=== PATIENT | male | born 1975 | race Caucasian/White ===

== ENCOUNTER → 2017-10-02 | Outpatient (CLI) | payer OTHER ==
[~2017-10-02] MED LIST: FLX10 PO; TRAM-10 PO
[2017-10-02 13:14] LABS: BLOOD UREA NITROGEN 12 mg/dl (7-18); CARBON DIOXIDE 28 mmol/L (21-32); CHOLESTEROL 151 mg/dl (0-200); CREATININE 1.08 mg/dl (0.60-1.40); GLUCOSE 106 mg/dl (70-99); POTASSIUM 4.5 mmol/L (3.5-5.1); SODIUM 138 mmol/L (136-145)
[2017-10-02 13:17] LABS: LDL CHOLESTEROL CALCULATED 88 mg/dl
== END | disposition home or self-care (01) ==
LOC: C.LABPVFM 09:15
PROVIDERS: ATTEND Nurse Practitioner Family
DX: Z13.1 Encounter for screening for diabetes mellitus (principal)

== ENCOUNTER → 2017-11-24 | Outpatient (CLI) | payer OTHER ==
[~2017-11-24] MED LIST changes: -TRAM-10 PO
--- NOTE | 2017-11-24 09:22 | DIAGNOSTIC IMAGING REPORT ---
MRI OF THE LUMBAR SPINE WITHOUT CONTRAST CLINICAL HISTORY: Lumbar radiculopathy. Low back pain radiating into right lower extremity. COMPARISON STUDY: No previous studies for comparison. TECHNIQUE: Utilizing a 1.5 Pretty magnet and dedicated coil, multiplanar, multiecho imaging of the lumbar spine was performed without IV contrast. FINDINGS: For purposes of numbering on this exam, the L5-S1 disc space is assigned to axial image 24 of 27. Vertebral body heights are maintained. There is no marrow edema or marrow replacement. A few Schmorl's nodes are noted. Conus terminates at the L1-L2 level. Paravertebral soft tissues are unremarkable. There is moderate disc space narrowing at L5-S1 with disc desiccation. L1-2: There is a small left first central disc protrusion that results in mild narrowing of the left lateral recess. The neural foramen are patent. L2-3: The central canal and neural foramen are patent. L3-4: There is mild disc bulge with ligamentous hypertrophy and facet arthrosis. The central canal and neural foramen are patent L4-5: There is mild facet arthrosis and ligamentous hypertrophy. Central canal and neural foramen are patent. L5-S1: There is disc bulge with superimposed broad-based central/bilateral paracentral disc protrusion. This results in moderate narrowing of the central canal and lateral recesses. There is suspected mass effect upon the descending right S1 nerve root. There is mild narrowing of both neural foramen. IMPRESSION: 1. Disc bulge with superimposed broad-based central/bilateral paracentral disc protrusion at L5-S1 that results in moderate narrowing of the central canal and both lateral recesses with suspected mass effect upon the right S1 nerve root. This could be correlated with right S1 radiculopathy. Mild bilateral neural foraminal narrowing at this level. 2. Small left paracentral disc protrusion at L1-L2 that results in mild narrowing of the left lateral recess. Electronically signed by: Chris Ford M.D. 11/24/2017 9:20 AM Dictated Date/Time: 11/24/2017 9:14 AM
== END | disposition home or self-care (01) ==
LOC: C.MRI 07:48
PROVIDERS: ATTEND Physician Assistant Medical
DX: M51.17 Intervertebral disc disorders with radiculopathy, lumbosacral region (principal)

== ENCOUNTER 2022-09-21 12:21 | Inpatient (IN) ==
--- NOTE | 2022-09-21 13:03 | Emergency Department Note ---
Impression & Plan Sciatica, Intractable low back pain ED Provider Note NAME: MARQUISE ROSA AGE: 47 SEX: M : 1975 ARRIVES VIA: Ambulance INFORMANT: Patient, ED PROVIDER(S): Cornell Ruiz MD CHIEF COMPLAINT: MEDICAL DECISION MAKING: Patient did present due to concern for back pain. Blood work was obtained and the patient was treated symptomatically with an IV that was established with IV morphine and IV Toradol IV fluids and p.o. Tylenol. Patient did have a lumbar x-ray completed. The patient's blood work is grossly unremarkable. The patient did not have significant relief with the initial round of medications. The patient was ordered 1 of Dilaudid. Patient's plain films do show some degenerative change. Patient has no weakness or bowel or bladder incontinence or symptoms of cauda equina. The patient was attempted to be seated up and ambulated but could not do so and do not believe the patient may go home at this time. I did speak with the on-call hospitalist Dr. Mcgarry for intractable back pain. Patient was a dmitted to the medicine service. Patient was ordered additional dose of fentanyl and COVID swab. Blood work showed a normal white count H&H and platelet count kidney function was grossly unremarkable. COVID-negative. Prior /Outside records reviewed: None Differential diagnosis: Musculoskeletal, disc herniation, fracture, metastatic disease, cord compression, discitis, sciatica, cauda equina, infection, aortic disease, renal colic, gastrointestinal, as well as other pathologies. Diagnostics, as interpreted by me: ECG: None Cardiac monitoring: An order was placed for continuous cardiac monitoring. The monitor shows a rate of 82 with sinus rhythm. Patient was placed on pulse oximetry Medical decision rules: None Imaging studies: See below HPI: Patient presents due to concern for back pain that began on Friday. The patient does have a known history of a bulging disc at L5-S1 and has had shooting pains in the past on the left side. The patient denies any inciting event or injury overuse heavy lifting twisting or turning but did have pain that developed on Friday he does have shooting pain down the right leg. The patient denies any numbness tingling or focal weakness and no bowel or bladder incontinence or retention. No falls or trauma. Patient did contact his pain management physician was prescribed prednisone but states that this has not been improving his symptoms. The patient has not taken anything else for symptoms at home. Patient states that he had such discomfort this morning that he was unable to get up and about to where he did call EMS. Patient denies any chest pain shortness of breath nausea or vomiting. Patient denies any alcohol or tob acco use. PAST MEDICAL HISTORY: See Below PAST SURGICAL HISTORY: See Below SOCIAL HISTORY: See Below HOME MEDICATIONS: See Below ALLERGIES: See Below VITALS: See Below PHYSICAL EXAMINATION: GENERAL: NAD, wearing a mask, non-toxic. EYE EXAM: Normal conjunctiva. PERRL, no anisocoria and EOM's grossly intact w/o pain. NECK: Supple, no nuchal rigidity, no adenopathy, non-tender. No signs of meningismus. FROM of the neck with good chin to chest and neck extension. No stridor. LUNGS: Clear to auscultation. Normal chest wall mechanics. HEART: NSR, no MRG. ABDOMEN: Abdomen soft, non-tender, normo-active bowel sounds, no masses, no rebound or guarding. BACK: No CVA TTP. No midline or right-sided paraspinal discomfort. SKIN: No rashes and no bruising. UPPER EXTREMITIES: Upper extremities are grossly normal. LOWER EXTREMITIES: Grossly normal, no edema. Positive straight leg raise test with right lower extremity. NEURO EXAM: A&O x3, cranial nerves II-XII grossly intact, normal speech, moves all 4 extremities. No sensory deficits, no saddle anesthesia, 5 out of 5 strength left lower extremity, 5 out of 5 strength right lower extremity but decreased range of motion secondary to pain. 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 Required: No Beliefs That Will Affect Care: None marital status: Current Living Situation: Spouse and Family current occupational status: employed 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 Other Information That Helps Us Care for You: No Feels Safe at Home: Yes Safety Concerns: Feels Safe At This Time caffeine: Yes (coffee) Dental Care, Regularly: Yes Physical Activity Frequency: 1-2 Times per Week Seatbelt Use: always Sunscreen Use: Yes Allergies Allergies Allergy/AdvReac Type Severity Reaction Status Date / Time Penicillins Allergy Mild Rash Verified 09/21/22 16:56 Home Meds Home Medications Medication Instructions Recorded Confirmed ibuprofen 200 mg tablet (Advil) 600 mg PO Q6H PRN Pain 09/21/22 09/21/22 multivitamin 1 tab PO DAILY 09/21/22 09/21/22 Previous Rx's Medication Instructions Recorded methylprednisolone 4 mg tablets in 4 mg PO .COMPLEX #21 ea 09/16/22 a dose pack Results & Data (ED) Vital Signs Vital Signs - 24 hr 09/21/22 12:09 09/21/22 16:00 Temperature 36.8 C Temperature Source Oral Pulse Rate 78 Pulse Rate [Apical] 56 L Pulse Rhythm Regular Pulse Rhythm [Apical] Regular Pulse Strength Normal Pulse Strength [Apical] Normal Respiratory Rate 20 20 Respiratory Effort / Characteristics Non-Labored Non-Labored Respiratory Depth Normal Normal Respiratory Pattern Regular Regular Blood Pressure 158/81 H Blood Pressure [Right Arm] 144/93 H Blood Pressure Mean 106 Blood Pressure Mean [Right Arm] 110 Pulse Oximetry 96 96 Oxygen Delivery Method Room Air Sepsis Recent Fever Within 48 Hours No Sepsis New/Unexplained Change in Mental Status No Sepsis Action Taken by Nursing No Action Required Home Medications Current Medication List: was personally reviewed by me Laboratory Data Attestation: I reviewed the patient's lab results. 09/22/22 07:02 09/22/22 07:02 Lab Results 09/21/22 09/21/22 09/21/22 Range/Units 13:35 13:35 16:23 WBC 7.30 (4.8-10.8) K/ul RBC 5.10 (4.70-6.10) M/uL Hgb 15.1 (14.0-18.0) g/dl Hct 44.6 (42.0-52.0) % MCV 87.5 (80.0-100.0) fL MCH 29.6 (25.0-34.0) pg MCHC 33.9 (32.0-36.0) g/dL RDW Std Deviation 43.3 (36.4-46.3) fL RDW Coeff of Bri 13.4 (11.5-14.5) % Plt Count 245 (130-400) K/uL MPV 10.7 (9.4-12.4) fL Immature Gran % (Auto) 0.4 % Neut % (Auto) 65.0 % Lymph % (Auto) 23.8 % [place] % (Auto) 9.3 % Eos % (Auto) 0.8 % Baso % (Auto) 0.7 % Neut # (Auto) 4.74 (1.40-6.50) K/uL Lymph # (Auto) 1.74 (1.2-3.4) K/uL [place] # (Auto) 0.68 H (0.11-0.59) K/uL Eos # (Auto) 0.06 (0-0.50) K/uL Baso # (Auto) 0.05 (0-0.2) K/uL Immature Gran # (Auto) 0.03 (0.01-0.20) K/uL Sodium 139 (136-145) mmol/L Potassium 4.0 (3.5-5.1) mmol/L Chloride 107 (98-107) mmol/L Carbon Dioxide 27 (21-32) mmol/L Anion Gap 5 (3-11) BUN 18 (6-23) mg/dl Creatinine 1.06 (0.6-1.4) mg/dl Est Cr Clr Drug Dosing 131.9 ml/min Est GFR ( Amer) 97.1 ml/min Est GFR (Non-Af Amer) 83.8 ml/min BUN/Creatinine Ratio 17.0 (10-20) Glucose 99 (70-99(Fasting)) mg/dl Calcium 9.9 (8.5-10.1) mg/dl SARS-CoV-2, RNA, NAAT NEGATIVE (NEGATIVE) Administered Medications Acetaminophen (Acetaminophen 325 Mg Tab) 650 mg PO Q4H PRN PRN Reason: pain/fever Stop: 10/21/22 18:39 Last Admin: 09/22/22 07:29 Dose: 650 mg Documented By: FREEDOM Cyclobenzaprine HCl (Cyclobenzaprine Hcl 5 Mg Tab) 5 mg PO BID [facility] Stop: 10/21/22 20:59 Last Admin: 09/22/22 07:30 Dose: 5 mg Documented By: Admin: 09/21/22 20:29 Dose: 5 mg Documented By: AGUSTÍN Hydromorphone HCl (Hydromorphone Inj 1 Mg/Ml Syringe) 1 mg IV Q3H PRN PRN Reason: Severe Pain (7,8,9,10) on NRS Stop: 10/05/22 18:39 Last Admin: 09/21/22 19:06 Dose: 1 mg Documented By: FREEDOM Dexamethasone 6 mg/ Syringe 1.5 mls @ 1 mls/min IV Q24H ORIANA Stop: 10/21/22 18:59 Last Admin: 09/21/22 20:29 Dose: 1 mls/min Documented By: AGUSTÍN Lidocaine (Lidocaine 5% 1 Patch) 1 patch TD QAM [facility] Stop: 10/22/22 08:59 Last Admin: 09/22/22 07:30 Dose: Not Given Documented By: FREEDOM Amaral (Remove Lidoderm Patch) 1 each N/A DAILY@2100 [facility] Stop: 10/21/22 20:59 Last Admin: 09/21/22 20:30 Dose: 1 each Documented By: AGUSTÍN Amaral (Remove Lidoderm Patch) 1 each N/A DAILY@2100 [facility] Stop: 10/21/22 20:59 Last Admin: 09/21/22 20:30 Dose: Not Given Documented By: AGUSTÍN Pantoprazole Sodium (Pantoprazole 40 Mg Tab) 40 mg PO DAILY [facility] Stop: 10/21/22 18:59 Last Admin: 09/22/22 07:30 Dose: 40 mg Documented By: Admin: 09/21/22 20:28 Dose: 40 mg Documented By: AGUSTÍN Discontinued Medications Acetaminophen (Acetaminophen 500 Mg Tab) 1,000 mg PO NOW STA Stop: 09/21/22 13:45 Last Admin: 09/21/22 14:01 Dose: 1,000 mg Documented By: CHYNA Fentanyl Citrate (Fentanyl Citrate 100 Mcg/2 Ml Vial) 50 mcg IV NOW STA Stop: 09/21/22 16:23 Last Admin: 09/21/22 16:33 Dose: 50 mcg Documented By: JAMES Hydromorphone HCl (Hydromorphone Inj 1 Mg/Ml Syringe) 1 mg IV NOW STA Stop: 09/21/22 15:11 Last Admin: 09/21/22 15:21 Dose: 1 mg Documented By: JAMES Ketorolac Tromethamine (Ketorolac Tromethamine 15 Mg/Ml Vial) 10 mg IV ONE STA Stop: 09/21/22 13:45 Last Admin: 09/21/22 14:02 Dose: 10 mg Documented By: CHYNA Lidocaine (Lidocaine 5% 1 Patch) 1 patch TD NOW STA Stop: 09/21/22 13:45 Last Admin: 09/21/22 14:02 Dose: 1 patch Documented By: CHYNA Morphine Sulfate (Morphine Sulfate 4 Mg/Ml 1 Ml Carp\Vial) 4 mg IV NOW STA Stop: 09/21/22 13:45 Last Admin: 09/21/22 14:03 Dose: 4 mg Documented By: CHYNA Imaging Data Radiologist's Impression: Lumbar Spine X-Ray 09/21/22 13:44 XR lumbar spine 2-3V HISTORY: 47 years-old Male R sided sciatica chronic low back pain COMPARISON: MR lumbar spine 01/30/2022 TECHNIQUE: 3 views of the lumbar spine FINDINGS: Unremarkable soft tissues. 5 lumbar type vertebral segments are present. Mild multilevel spondylitic spurring with intervertebral disc space narrowing and facet arthrosis. No acute fracture, subluxation or endplate erosion. No spondylolysis or spondylolisthesis. IMPRESSION: 1. No acute fracture or subluxation. 2. Mild degenerative changes of the lumbar spine are better depicted on the 01/30/2022 MRI study. ACT 112: Negative or not required by law. The above report was generated using voice recognition software. It may contain grammatical, syntax or spelling errors. Electronically signed by: Mitchell Jordan M.D. 09/21/2022 2:34 PM Discharge Plan Visit Data Chief Complaint: Back Injury/Pain Stated Complaint: BACK PAIN ED Provider: Cornell Ruiz Discharge Problem: Sciatica, Intractable low back pain Patient Disposition: Admitted As Inpatient Discharge Instructions Interventions: ED Discharge Assessment Last Done: 09/21/22 19:04
[2022-09-21] MEDS ORDERED: KETOROLAC TROMETHAMINE 15 MG/ML VIAL IV STA (13:44)
[2022-09-21] MEDS ORDERED: LIDOCAINE 5% 1 PATCH TD STA (13:44)
[2022-09-21] MEDS ORDERED: MoRPHine SULFATE 4 MG/ML 1 ML CARP\\VIAL IV STA (13:44)
[2022-09-21] MEDS ORDERED: ACETAMINOPHEN 500 MG TAB PO STA (13:44)
--- NOTE | 2022-09-21 14:36 | XRay Report ---
XR lumbar spine 2-3V HISTORY: 47 years-old Male R sided sciatica chronic low back pain COMPARISON: MR lumbar spine 01/30/2022 TECHNIQUE: 3 views of the lumbar spine FINDINGS: Unremarkable soft tissues. 5 lumbar type vertebral segments are present. Mild multilevel spondylitic spurring with intervertebral disc space narrowing and facet arthrosis. No acute fracture, subluxation or endplate erosion. No spondylolysis or spondylolisthesis. IMPRESSION: 1. No acute fracture or subluxation. 2. Mild degenerative changes of the lumbar spine are better depicted on the 01/30/2022 MRI study. ACT 112: Negative or not required by law. The above report was generated using voice recognition software. It may contain grammatical, syntax o r spelling errors. Electronically signed by: Mitchell Jordan M.D. 09/21/2022 2:34 PM
[2022-09-21] MEDS ORDERED: HYDROmorphone INJ 1 MG/ML SYRINGE IV STA (15:10)
[2022-09-21 16:04] LABS: Basophils # (auto) 0.05 K/uL (0-0.2); Basophils % (auto) 0.7 %; Eosinophils # (auto) 0.06 K/uL (0-0.50); Eosinophils % (auto) 0.8 %; Hematocrit (blood only) 44.6 % (42.0-52.0); Hemoglobin 15.1 g/dl (14.0-18.0); Immature Granulocytes # (auto) 0.03 K/uL (0.01-0.20); Immature Granulocytes % (auto) 0.4 %; Lymphocytes # (auto) 1.74 K/uL (1.2-3.4); Lymphocytes % (auto) 23.8 %; Mean Corpuscular Hemoglobin 29.6 pg (25.0-34.0); Mean Corpuscular Hgb Conc 33.9 g/dL (32.0-36.0); Mean Corpuscular Volume 87.5 fL (80.0-100.0); Mean Platelet Volume 10.7 fL (9.4-12.4); Monocytes # (auto) 0.68 K/uL (0.11-0.59); Monocytes % (auto) 9.3 %; Neutrophils # (auto) 4.74 K/uL (1.40-6.50); Platelet Count 245 K/uL (130-400); RDW Coefficient of Variation 13.4 % (11.5-14.5); RDW Standard Deviation 43.3 fL (36.4-46.3)
[2022-09-21] MEDS ORDERED: fentaNYL citrate 100 MCG/2 ML VIAL IV STA (16:22)
[2022-09-21 16:24] LABS: Calcium 9.9 mg/dl (8.5-10.1); Creatinine Clr Calc Pharmacy 131.9 ml/min; Est GFR (African American) 97.1 ml/min; Est GFR (Non-African American) 83.8 ml/min
--- NOTE | 2022-09-21 17:04 | History & Physical Report ---
Date of Service September 21, 2022 Assessment & Plan (1) Back pain: Plan: Acute on chronic low back pain. Less than 7 days, progressive without neurovascular compromise Patient with recurrent low back pain and right leg radicular symptoms Had similar but more mild symptoms from until August, received an injection with pain management which did significantly improve/resolve his pain for a few weeks Did not have any injury, but notes this past Friday did have recurrence of his right low back pain extending into the leg which has gradually worsened through the week. Patient came in today when he was no longer able to get up off the floor due to severe pain No sensory deficits, no weakness, no saddle anesthesia, no bowel/bladder dysfunction Patient did not improve with outpatient methylprednisolone 4 mg Dosepak over the last 5 days Some relief in ER after Tylenol, fentanyl 50 mcg, hydromorphone 1 mg, Toradol, lidocaine patch, morphine 4 mg Will admit for intractable pain and inability to ambulate. Continue multimodal pain control with Tylenol, lidocaine patch, will switch and trial dexamethasone 6 mg twice daily, with scaled hydromorphone for breakthrough If pain not improving with aggressive control above, obtain repeat MRI, consult pain management reeval for? Additional injection versus orthospine consultation if remains intractable. No weakness/sensory deficit indicating need for emergent decompression. MRI 01/20/2022: Multilevel degenerative disc disease and facet arthrosis, moderate canal stenosis at L5-S1 progressive since prior imaging in 2017 Lumbar spine XR: No fracture or subluxation, mild degenerative changes Patient denies other chronic medical problems and chronic medications none Diet: Regular Disposition: Medical/surgical CODE STATUS: Full code DVT PPx: SCDs, hold pharmacal prophylaxis pending pain management eval for? Injection (2) Lumbar pain with radiation down right leg: History of Present Illness Primary Care Provider: Yolanda Schaefer MD Back pain since Friday Severe, radiaing down R leg down into R lateral ankle No weakness no bowel or bladder change Gradually worsened Took methylpred 5 day taper which did not help Fentany, hydromorphine, toradol, lidocaine, morhpine, tylenol with some pain relief at rest but cannot walk due to pain Pt with lumbar injection Aug 22 did help, pain improved until this past friday. Original similar pain stared an dsignificantly improved after injection. No click/pop/twist injury at onset Medical History: Reviewed Medications: Reviewed Surgical History: Reviewed Allergies: Reviewed Social History: No tobacco, Etoh none Code Status: Emergency contact is Niya. Full Code Allergies Allergy/AdvReac Type Severity Reaction Status Date / Time Penicillins Allergy Mild Rash Verified 09/21/22 16:56 Home Medications Medication Instructions Recorded Confirmed Type methylprednisolone 4 mg tablets in 4 mg PO .COMPLEX #21 ea 09/16/22 09/21/22 Rx a dose pack ibuprofen 200 mg tablet (Advil) 600 mg PO Q6H PRN Pain 09/21/22 09/21/22 History multivitamin 1 tab PO DAILY 09/21/22 09/21/22 History Past Med/Surg History Medical History Lumbar disc herniation Lumbar pain with radiation down right leg Spinal stenosis of lumbar region Surgical History No pertinent past surgical history Family History Grandmother Diabetes Denies family history of Ovarian cancer Prostate cancer Breast cancer Colorectal cancer Lung disease Hypertension Social History Smoking Status: Never smoker Second Hand Exposure: No; Hx Alcohol Use: Yes Hx Substance Use: No Preferred Language: Gibraltarian marital status: Current Living Situation: Spouse current occupational status: employed 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 NAD. Cooperative. HEENT: Atraumatic, normocephalic. Pulm: CTAB A&P. -wheezes, -rales, -rhonchi. Symmetrical chest rise. No increased work of breathing. No respiratory distress. Cardiac: RRR, -mrg. Radial pulses intact and symmetrical. Abdominal: Nontender, nondistended, soft. BS present. Back/extremity: Patient resting laying back in bed with knees flexed, reports this does help his pain. Is able to extend his right leg at the knee to about 20 degrees before shooting pain develops shooting down through the buttock into the lateral ankle. With lumbar tenderness and mild increased paraspinal tone. Sensation intact to soft touch in all distributions of the proximal and lower right and left lower extremity without asymmetry. Ankle dorsiflexion/plantarflexion is 5/5 bilaterally. Knee flexion/extension is 5/5 bilaterally, limit of extension on the right side by pain, but no weakness. No saddle anesthesia. Results & Data Results & Data ([facility]) Vital Signs (Past 12 Hours) Vital Signs Temp Pulse Pulse Resp BP BP Pulse Ox 09/21/22 16:00 56 L 20 144/93 H 96 09/21/22 12:09 36.8 C 78 20 158/81 H 96 O2 Del Method 09/21/22 16:00 09/21/22 12:09 Room Air PG Care Time/CCT Total # of Minutes Spent Total Time Spent with Patient: Total time spent is greater than 50% in coordination of care (as documented) at patient's floor/unit and/or counseling patient: Coding Level of Care Code 90358 INT INP/OBS CARE 2/55MIN Diagnoses Back pain M54.9 Lumbar pain with radiation down right leg M54.50; M79.604
[2022-09-21] MEDS ORDERED: HYDROmorphone INJ 0.5 MG/0.5 ML SYR IV PRN (18:40)
[2022-09-21] MEDS ORDERED: POLYETHYLENE (MIRALAX) 17 GM PACK PO PRN (18:40)
[2022-09-21] MEDS: HYDROmorphone INJ 1 MG/ML SYRINGE IV PRN (19:06)
[2022-09-21] MEDS: PANTOprazole 40 MG TAB PO SCH (20:28)
[2022-09-21] MEDS: CYCLOBENZAPRINE HCL 5 MG TAB PO SCH (20:29)
[2022-09-21] MEDS: dexAMETHasone 6 MG in SYRINGE 0 ML IV SCH (20:29)
[2022-09-22 07:21] LABS: Basophils # (auto) 0.02 K/uL (0-0.2); Basophils % (auto) 0.3 %; Hematocrit (blood only) 45.3 % (42.0-52.0); Hemoglobin 15.1 g/dl (14.0-18.0); Immature Granulocytes # (auto) 0.03 K/uL (0.01-0.20); Immature Granulocytes % (auto) 0.4 %; Lymphocytes # (auto) 0.81 K/uL (1.2-3.4); Mean Corpuscular Hemoglobin 29.4 pg (25.0-34.0); Mean Corpuscular Hgb Conc 33.3 g/dL (32.0-36.0); Mean Corpuscular Volume 88.1 fL (80.0-100.0); Mean Platelet Volume 10.5 fL (9.4-12.4); Monocytes # (auto) 0.32 K/uL (0.11-0.59); Monocytes % (auto) 4.3 %; Neutrophils # (auto) 6.21 K/uL (1.40-6.50); Platelet Count 248 K/uL (130-400); RDW Coefficient of Variation 13.2 % (11.5-14.5); Red Blood Count 5.14 M/uL (4.70-6.10); White Blood Count 7.39 K/ul (4.8-10.8)
[2022-09-22] MEDS: ACETAMINOPHEN 325 MG TAB PO PRN ×3 (07:29→19:47)
[2022-09-22] MEDS: PANTOprazole 40 MG TAB PO SCH (07:30)
[2022-09-22] MEDS: CYCLOBENZAPRINE HCL 5 MG TAB PO SCH ×2 (07:30→19:44)
[2022-09-22] MEDS: LIDOCAINE 5% 1 PATCH TD SCH (07:30)
[2022-09-22 07:49] LABS: BUN Creatinine Ratio 21.2 (10-20); Calcium 9.7 mg/dl (8.5-10.1); Est GFR (African American) 89.8 ml/min; Est GFR (Non-African American) 77.5 ml/min; Potassium 4.4 mmol/L (3.5-5.1)
[2022-09-22] MEDS: HYDROmorphone INJ 1 MG/ML SYRINGE IV PRN (10:07)
--- NOTE | 2022-09-22 11:14 | Hospitalist Progress Note ---
Date of Service September 22, 2022 Assessment & Plan (1) Back pain: Plan: Acute on chronic low back pain. Less than 7 days, progressive without neurovascular compromise Patient with recurrent low back pain and right leg radicular symptoms Patient did not improve with outpatient methylprednisolone 4 mg Dosepak over the last 5 days Some relief in ER after Tylenol, fentanyl 50 mcg, hydromorphone 1 mg, Toradol, lidocaine patch, morphine 4 mg Will admit for intractable pain and inability to ambulate. Continue multimodal pain control with Tylenol, lidocaine patch, will switch and trial dexamethasone 6 mg twice daily, with scaled hydromorphone for breakthrough MRI 01/20/2022: Multilevel degenerative disc disease and facet arthrosis, moderate canal stenosis at L5-S1 progressive since prior imaging in 2018 - Lumbar spine XR: No fracture or subluxation, mild degenerative changes - MRI of lumbar spine w/o contrast ordered this AM - pending read by radiology, will determine either to consult orthospine v pain management - Upon my review of MRI appears to have a disc bulge between L5 and S1 (2) Lumbar pain with radiation down right leg: Plan Continue pain control, PT/OT, and await radiologist read on MRI which will dictate remainder of plan. Above has been d/w Dr. Pierre. Admission and Anticipated Discharge Date Admission Date: September 21, 2022 Subjective Patient seen on daily rounds this morning. He denies pain with laying still in bed, but pain is exacerbated by movement, changing positions, twisting. He c/o sharp pain in lower back that radiates down right leg into ankle. No precipitating events prior to onset of pain. He denies loss of bowel or bladder or saddle anesthesias. He had an exacerbation of back pain in May which by the time he was able to get into pain management had seemed to improve somewhat. He noted some relief after his epidural spine injection in August. Physical Exam Physical Exam: GENERAL: 47 yo Well-developed, overweight WM. NAD. EXTREMITIES: No edema. Non-tender. Peripheral pulses +2/4. +straight leg rise on R, -cross straight leg NEUROLOGIC: No gross neuro deficits. mild RLE weakness > LLE Results & Data Results & Data ([facility]) Vital Signs (Past 12 Hours) Vital Signs Temp Pulse Resp BP Pulse Ox O2 Del Method 09/22/22 07:40 36.5 C 61 18 118/78 95 Room Air Laboratory Results 09/22/22 07:02 09/22/22 07:02 PG Care Time/CCT Total # of Minutes Spent Total Time Spent with Patient: Total time spent is greater than 50% in coordination of care (as documented) at patient's floor/unit and/or counseling patient: Coding Level of Care Code 78673 SUB INP/OBS CARE 2/35MIN Diagnoses Back pain M54.9 Lumbar pain with radiation down right leg M54.50; M79.604
--- NOTE | 2022-09-22 15:04 | Magnetic Resonance Report ---
MRI OF THE LUMBAR SPINE WITHOUT IV CONTRAST CLINICAL HISTORY: Chronic low back pain. COMPARISON STUDY: Lumbar spine radiographs dated 09/21/2022. MRI of the lumbar spine dated 01/30/2022. TECHNIQUE: MRI of the lumbar spine is performed utilizing various T1 and T2-weighted sequences in the axial and sagittal planes. IV contrast was not administered for this examination. FINDINGS: Lumbar spine: Vertebral body height and alignment are maintained throughout the lumbar spine. Normal marrow signal intensity is preserved throughout the visualized bony structures. The transverse and sp inous processes appear intact. There is no evidence of spondylolysis. Small anterior and lateral marcos inal osteophytes are seen throughout. No destructive bony lesion is seen. Intervertebral discs: Disc desiccation is seen throughout the lumbar region. There is mild to moderat e loss of height at L5-S1. Minimal loss of height is seen at L1-L2 and L2-L3. Spinal cord: The visualized spinal cord is normal in morphology and signal intensity. The conus medul joanna terminates at the L1-L2 interspace. The nerve roots of the cauda equina are normal in morpholog y and signal intensity. L1-L2: Minimal posterior disc bulge abuts the transiting nerve roots. The central canal and neural fo ramina are patent. L2-L3: Unremarkable. L3-L4: There is a small central posterior disc protrusion. This abuts the transiting nerve roots. The re is no significant acquired compromise of the central canal at this level. The minimum AP diameter measures 7.5 mm. The neural foramina are patent. L4-L5: Unremarkable. L5-S1: There is broad-based posterior disc bulge eccentric to the left with annular fissure. A small inferiorly extruded fragment is seen eccentric to the left on axial image #29. This measures up to 7 mm. There is impingement on the transiting nerve roots, left greater than right. There is severe cent ral canal stenosis at this level with a minimum AP diameter of 4 mm. Lateral disc bulge is seen bilat erally, left greater than right. This contributes to severe left-sided subarticular stenosis and impi nges on the exiting left L5 nerve root. Milder subarticular stenosis is seen on the right. In conjunc tion with facet arthropathy there is at least moderate left greater than right neural foraminal narro wing. Sacrum: The visualized sacrum is normal in morphology and signal intensity. Soft tissues: The paraspinous soft tissues are normal as visualized. The retroperitoneal structures a re grossly unremarkable but incompletely evaluated. IMPRESSION: 1. There is posterior disc bulge eccentric to the left at L5-S1 with an inferiorly extruded fragment. There is impingement on the transiting nerve roots and the exiting left L5 nerve at this level as we ll as severe central canal stenosis. This has modestly worsened as compared to 01/30/2022. 2. Mild spondylotic changes at additional levels as above. See discussion for detailed level by level analysis. 3. No destructive bony process is seen. Dictated: 09/22/2022 10:02 AM Transcribed: 09/22/2022 10:30 AM Hilda [id number] [email or web address] Electronically signed by: Rip Bueno M.D. 09/22/2022 3:02 PM
--- NOTE | 2022-09-22 18:18 | Orthopedic Consultation ---
Date of Consultation September 22, 2022 Assessment & Plan (1) Lumbar disc herniation: Assessment acute on chronic disc herniation L5-S1 with radiculopathy. Plan I did review the MRI of January 2022 as well as his most recent MRI today. He has worsening space collapse and disc herniation L5-S1. He creates marked compression of the traversing nerve roots both right and left as well as severe spinal stenosis. Adjacent levels are very healthy. At this time I discussed with the patient the course of injections versus surgical intervention. He would like to have this addressed surgically in light of his severe pain and inability to ambulate. His MRI and clinical presentation supports this decision. He would require a wide decompression aggressive facetectomies to adequately address the disc herniations and foraminal disease. I would subsequently recommend fusion to address any iatrogenic instability created. Perspective pros cons and alternatives were outlined in detail. Risk include but not limited to anesthesia blindness stroke paralysis nerve damage bilateral chronic transfusion infection requiring reoperation but is with a marked improvement of his back and leg pain. History of Present Illness Reason for Consultation: Back and right leg pain Attending Physician: Zander Pierre MD History of Present Illness This is a 47-year-old male who presents with severe back and right leg pain. He was unable to ambulate or get himself off the floor. He presents emergency room and subsequently admitted. Because of a history of chronic back pain beginning about a year ago. This pain was at lumbosacral junction with modest radiation to the right buttock. He did undergo an epidural injection early August which she states provided no relief. Upon the recent onset of symptoms he underwent a course of oral steroids was also provided no relief. He states today he is unable to stand or ambulate secondary to the severe back and right leg pain. Is markedly worse than symptoms he been struggling with over the past year. Allergies Allergy/AdvReac Type Severity Reaction Status Date / Time Penicillins Allergy Mild Rash Verified 09/21/22 16:56 Home Medications Medication Instructions Recorded Confirmed Type methylprednisolone 4 mg tablets in 4 mg PO .COMPLEX #21 ea 09/16/22 09/21/22 Rx a dose pack ibuprofen 200 mg tablet (Advil) 600 mg PO Q6H PRN Pain 09/21/22 09/21/22 History multivitamin 1 tab PO DAILY 09/21/22 09/21/22 History Patient History Medical History Lumbar disc herniation Lumbar pain with radiation down right leg Spinal stenosis of lumbar region Surgical History No pertinent past surgical history Family History Grandmother Diabetes Denies family history of Ovarian cancer Prostate cancer Breast cancer Colorectal cancer Lung disease Hypertension Social History Smoking Status: Never smoker Second Hand Exposure: No; Hx Alcohol Use: No Hx Substance Use: No Preferred Language: Amharic [employer] Manager Required: No Beliefs That Will Affect Care: None marital status: Current Living Situation: Spouse and Family current occupational status: employed 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 Is comfortable position for him. He exhibits a +5-5 bilateral plantar flexion dorsiflexion extensor houses longus. Sensory appears to be symmetric and intact. Deep tendon reflexes diminished. He exhibits no tension signs with straight leg raising on the left. On the right he has significant tension signs as well as a positive Lasegue's maneuver. Results & Data ([facility]) Vital Signs (Past 12 Hours) Vital Signs Temp Pulse Resp BP Pulse Ox O2 Del Method 09/22/22 15:31 36.8 C 68 18 109/71 95 Room Air 09/22/22 07:40 36.5 C 61 18 118/78 95 Room Air
[2022-09-22] MEDS: dexAMETHasone 6 MG in SYRINGE 0 ML IV SCH (19:44)
[2022-09-23] MEDS: HYDROmorphone INJ 1 MG/ML SYRINGE IV PRN ×2 (07:53→22:01)
[2022-09-23] MEDS: PANTOprazole 40 MG TAB PO SCH (08:04)
[2022-09-23] MEDS: CYCLOBENZAPRINE HCL 5 MG TAB PO SCH ×2 (08:04→20:02)
[2022-09-23] MEDS: LIDOCAINE 5% 1 PATCH TD SCH (08:04)
--- NOTE | 2022-09-23 11:40 | Anesthesiology Consultation ---
Date of Service September 23, 2022 Assessment & Plan Chart Review Chart Review: Acceptable Risk for Surgery and Patient NOT seen in Pre Admission Testing History Surgery Operation Date: 09/23/22 12:30 Proposed Procedures p L5-S1 Decompression Fusion, Spinal Cord Monitoring - Garth Paul DO Height/Weight Height: 6 ft 3 in Weight: 135 kg Allergies Allergy/AdvReac Type Severity Reaction Status Date / Time Penicillins Allergy Mild Rash Verified 09/21/22 16:56 Medications Home Medications Medication Instructions Recorded Confirmed Last Taken methylprednisolone 4 mg tablets in 4 mg PO .COMPLEX #21 ea 09/16/22 09/21/22 09/21/22 a dose pack ibuprofen 200 mg tablet (Advil) 600 mg PO Q6H PRN Pain 09/21/22 09/21/22 Unknown multivitamin 1 tab PO DAILY 09/21/22 09/21/22 Unknown Active Medications Generic Name Dose Route Start Last Admin Trade Name Freq PRN Reason Stop Dose Admin Acetaminophen 650 mg 09/21/22 18:40 09/22/22 19:47 Acetaminophen 325 Mg Tab PO 10/21/22 18:39 650 mg Q4H PRN Administration pain/fever Cyclobenzaprine HCl 5 mg 09/21/22 21:00 09/23/22 08:04 Cyclobenzaprine Hcl 5 Mg Tab PO 10/21/22 20:59 Not Given BID ORIANA Hydromorphone HCl 1 mg 09/21/22 18:40 09/23/22 07:53 Hydromorphone Inj 1 Mg/Ml Syringe IV 10/05/22 18:39 1 mg Q3H PRN Administration Severe Pain (7,8,9,10) on NRS Dexamethasone 6 mg/ Syringe 1.5 mls @ 1 mls/min 09/21/22 19:00 09/22/22 19:44 IV 10/21/22 18:59 1 mls/min Q24H ORIANA Administration Lidocaine 1 patch 09/22/22 09:00 09/23/22 08:04 Lidocaine 5% 1 Patch TD 10/22/22 08:59 Not Given QAM [facility] Miscellaneous 1 each 09/21/22 21:00 09/22/22 19:44 Remove Lidoderm Patch N/A 10/21/22 20:59 Not Given DAILY@2100 ORINAA Miscellaneous 1 each 09/21/22 21:00 09/22/22 19:45 Remove Lidoderm Patch N/A 10/21/22 20:59 Not Given DAILY@2100 ORIANA Pantoprazole Sodium 40 mg 09/21/22 19:00 09/23/22 08:04 Pantoprazole 40 Mg Tab PO 10/21/22 18:59 Not Given DAILY ORIANA Past Medical History Medical History Lumbar disc herniation Lumbar pain with radiation down right leg Spinal stenosis of lumbar region Past Family History Family History Grandmother Diabetes Denies family history of Ovarian cancer Prostate cancer Breast cancer Colorectal cancer Lung disease Hypertension Past Surgical History Surgical History No pertinent past surgical history Social History Smoking Status: Never smoker Hx Alcohol Use: No Hx Substance Use: No Physical Exam Vital Signs Last Vital Signs Temp 36.8 C 09/23/22 08:22 Pulse 77 09/23/22 08:22 Resp 16 09/23/22 08:22 BP 130/80 09/23/22 08:22 Pulse Ox 94 09/23/22 08:22 O2 Del Method 09/23/22 08:22 Testing Laboratory Results 09/22/22 07:02 09/22/22 07:02
--- NOTE | 2022-09-23 11:42 | Hospitalist Progress Note ---
Date of Service September 23, 2022 Assessment & Plan (1) Back pain: Plan: Acute on chronic low back pain. Less than 7 days, progressive without neurovascular compromise Patient with recurrent low back pain and right leg radicular symptoms Patient did not improve with outpatient methylprednisolone 4 mg Dosepak over the last 5 days Some relief in ER after Tylenol, fentanyl 50 mcg, hydromorphone 1 mg, Toradol, lidocaine patch, morphine 4 mg Will admit for intractable pain and inability to ambulate. Continue multimodal pain control with Tylenol, lidocaine patch, will switch and trial dexamethasone 6 mg twice daily, with scaled hydromorphone for breakthrough MRI 01/20/2022: Multilevel degenerative disc disease and facet arthrosis, moderate canal stenosis at L5-S1 progressive since prior imaging in 2018 - Lumbar spine XR: No fracture or subluxation, mild degenerative changes - MRI of lumbar spine - posterior disc bulge eccentric to left at L5-S1 w/ an inferiorly extruded fragment. - Consulted Dr. Paul, plan for lumbar decompression and fusion on 09/23, currently NPO for OR (2) Lumbar pain with radiation down right leg: Plan Plan as outlined above. For surgery today. Above has been d/w Dr. Pierre. Admission and Anticipated Discharge Date Admission Date: September 23, 2022 Subjective Patient seen on daily rounds this morning. He was seen yesterday evening by Dr. Paul, for OR this afternoon for lumbar decompression and fusion. Although nervous, he is ready to have the surgery. He is hoping that this surgery will resolve his back pain. He denies cp or dyspnea. Continues to deny loss of bowel or bladder control. Physical Exam Physical Exam: GENERAL: 47 yo Well-developed, overweight WM. NAD. EXTREMITIES: No edema. Non-tender. Peripheral pulses +2/4. +straight leg rise on R, -cross straight leg NEUROLOGIC: No gross neuro deficits. Results & Data Results & Data ([facility]) Vital Signs (Past 12 Hours) Vital Signs Temp Pulse Resp BP Pulse Ox O2 Del Method 09/23/22 08:22 36.8 C 77 16 130/80 94 Room Air Diagnostic Findings Lumbar Spine MRI 09/22/22 08:44 MRI OF THE LUMBAR SPINE WITHOUT IV CONTRAST CLINICAL HISTORY: Chronic low back pain. COMPARISON STUDY: Lumbar spine radiographs dated 09/21/2022. MRI of the lumbar spine dated 01/30/2022. TECHNIQUE: MRI of the lumbar spine is performed utilizing various T1 and T2- weighted sequences in the axial and sagittal planes. IV contrast was not administered for this examination. FINDINGS: Lumbar spine: Vertebral body height and alignment are maintained throughout the lumbar spine. Normal marrow signal intensity is preserved throughout the visualized bony structures. The transverse and spinous processes appear intact. There is no evidence of spondylolysis. Small anterior and lateral marginal osteophytes are seen throughout. No destructive bony lesion is seen. Intervertebral discs: Disc desiccation is seen throughout the lumbar region. There is mild to moderate loss of height at L5-S1. Minimal loss of height is seen at L1-L2 and L2-L3. Spinal cord: The visualized spinal cord is normal in morphology and signal intensity. The conus medullaris terminates at the L1-L2 interspace. The nerve roots of the cauda equina are normal in morphology and signal intensity. L1-L2: Minimal posterior disc bulge abuts the transiting nerve roots. The central canal and neural foramina are patent. L2-L3: Unremarkable. L3-L4: There is a small central posterior disc protrusion. This abuts the transiting nerve roots. There is no significant acquired compromise of the central canal at this level. The minimum AP diameter measures 7.5 mm. The neural foramina are patent. L4-L5: Unremarkable. L5-S1: There is broad-based posterior disc bulge eccentric to the left with annular fissure. A small inferiorly extruded fragment is seen eccentric to the left on axial image #29. This measures up to 7 mm. There is impingement on the transiting nerve roots, left greater than right. There is severe central canal stenosis at this level with a minimum AP diameter of 4 mm. Lateral disc bulge is seen bilaterally, left greater than right. This contributes to severe left-sided subarticular stenosis and impinges on the exiting left L5 nerve root. Milder subarticular stenosis is seen on the right. In conjunction with facet arthropathy there is at least moderate left greater than right neural foraminal narrowing. Sacrum: The visualized sacrum is normal in morphology and signal intensity. Soft tissues: The paraspinous soft tissues are normal as visualized. The retroperitoneal structures are grossly unremarkable but incompletely evaluated. IMPRESSION: 1. There is posterior disc bulge eccentric to the left at L5-S1 with an inferiorly extruded fragment. There is impingement on the transiting nerve roots and the exiting left L5 nerve at this level as well as severe central canal stenosis. This has modestly worsened as compared to 01/30/2022. 2. Mild spondylotic changes at additional levels as above. See discussion for detailed level by level analysis. 3. No destructive bony process is seen. Dictated: 09/22/2022 10:02 AM Transcribed: 09/22/2022 10:30 AM Hilda [id number] [email or web address] Electronically signed by: Rip Bueno M.D. 09/22/2022 3:02 PM PG Care Time/CCT Total # of Minutes Spent Total Time Spent with Patient: Total time spent is greater than 50% in coordination of care (as documented) at patient's floor/unit and/or counseling patient: Coding Level of Care Code 15266 SUB INP/OBS CARE 2/35MIN Diagnoses Back pain M54.9 Lumbar pain with radiation down right leg M54.50; M79.604
--- NOTE | 2022-09-23 13:36 | Orthopedic Progress Note ---
Date of Service September 23, 2022 Assessment & Plan (1) Lumbar disc herniation: Plan: At this time explained the patient and his that due to insurance we will have to wait another day before able to perform his surgery. The understand agrees. He continues to have significant limitation with severe right leg pain and is anxious to proceed with surgery. We will let him eat today and make him n.p.o. the day prior to surgery. Admission and Anticipated Discharge Date Admission Date: September 23, 2022 Subjective Patient continues struggle with significant back and right leg pain. Physical Exam Physical Exam: Patient is simple the bedside. He has positive straight leg raising signs to the right leg. His is at the bedside. Results & Data ([facility]) Vital Signs (Past 12 Hours) Vital Signs Temp Pulse Resp BP Pulse Ox O2 Del Method 09/23/22 08:22 36.8 C 77 16 130/80 94 Room Air
[2022-09-23] MEDS: dexAMETHasone 6 MG in SYRINGE 0 ML IV SCH (18:17)
[2022-09-24 07:54] LABS: Basophils # (auto) 0.01 K/uL (0-0.2); Basophils % (auto) 0.1 %; Hematocrit (blood only) 44.6 % (42.0-52.0); Hemoglobin 15.1 g/dl (14.0-18.0); Immature Granulocytes # (auto) 0.02 K/uL (0.01-0.20); Immature Granulocytes % (auto) 0.3 %; Lymphocytes # (auto) 1.22 K/uL (1.2-3.4); Lymphocytes % (auto) 16.2 %; Mean Corpuscular Hemoglobin 29.7 pg (25.0-34.0); Mean Corpuscular Hgb Conc 33.9 g/dL (32.0-36.0); Mean Corpuscular Volume 87.6 fL (80.0-100.0); Mean Platelet Volume 10.3 fL (9.4-12.4); Monocytes # (auto) 0.51 K/uL (0.11-0.59); Monocytes % (auto) 6.8 %; Neutrophils # (auto) 5.76 K/uL (1.40-6.50); Neutrophils % (auto) 76.6 %; Platelet Count 249 K/uL (130-400); RDW Coefficient of Variation 13.2 % (11.5-14.5); RDW Standard Deviation 42.7 fL (36.4-46.3); Red Blood Count 5.09 M/uL (4.70-6.10); White Blood Count 7.52 K/ul (4.8-10.8)
[2022-09-24 08:12] LABS: BUN Creatinine Ratio 19.3 (10-20); Calcium 9.8 mg/dl (8.5-10.1); Creatinine Clr Calc Pharmacy 125.4 ml/min; Est GFR (African American) 93.8 ml/min; Potassium 4.5 mmol/L (3.5-5.1)
[2022-09-24] MEDS: PANTOprazole 40 MG TAB PO SCH (09:41)
[2022-09-24] MEDS: CYCLOBENZAPRINE HCL 5 MG TAB PO SCH ×2 (09:41→19:46)
[2022-09-24] MEDS: LIDOCAINE 5% 1 PATCH TD SCH (09:42)
--- NOTE | 2022-09-24 12:25 | Hospitalist Progress Note ---
Date of Service September 24, 2022 Assessment & Plan (1) Back pain: Plan: Acute on chronic low back pain. Less than 7 days, progressive without neurovascular compromise Patient with recurrent low back pain and right leg radicular symptoms Patient did not improve with outpatient methylprednisolone 4 mg Dosepak over the last 5 days Some relief in ER after Tylenol, fentanyl 50 mcg, hydromorphone 1 mg, Toradol, lidocaine patch, morphine 4 mg Will admit for intractable pain and inability to ambulate. Continue multimodal pain control with Tylenol, lidocaine patch, will switch and trial dexamethasone 6 mg twice daily, with scaled hydromorphone for breakthrough MRI 01/20/2022: Multilevel degenerative disc disease and facet arthrosis, moderate canal stenosis at L5-S1 progressive since prior imaging in 2018 - Lumbar spine XR: No fracture or subluxation, mild degenerative changes - MRI of lumbar spine - posterior disc bulge eccentric to left at L5-S1 w/ an inferiorly extruded fragment. - Consulted Dr. Paul, plan for lumbar decompression and fusion on 09/25 (now awaiting insurance approval) - Will be made NPO after MN tonight for planned procedure (2) Lumbar pain with radiation down right leg: Plan Plan as outlined above. Above has been d/w Dr. Pierre. Admission and Anticipated Discharge Date Admission Date: September 23, 2022 Subjective Patient see on daily rounds this morning. Continues to wrestle with how to get comfortable due to back pain. Continues to have right thigh numbness. Denies loss of bowel/bladder control or saddle anesthesias. Physical Exam Physical Exam: GENERAL: 47 yo Well-developed, overweight WM. NAD. EXTREMITIES: No edema. Non-tender. Peripheral pulses +2/4. +straight leg rise on R, -cross straight leg NEUROLOGIC: No gross neuro deficits. Results & Data Results & Data ([facility]) Vital Signs (Past 12 Hours) Vital Signs Temp Pulse Pulse Resp BP Pulse Ox O2 Del Method 09/24/22 08:00 36.5 C 67 16 117/72 97 Room Air 09/24/22 00:31 36.5 C 65 14 114/67 94 Room Air PG Care Time/CCT Total # of Minutes Spent Total Time Spent with Patient: Total time spent is greater than 50% in coordination of care (as documented) at patient's floor/unit and/or counseling patient: Coding Level of Care Code 99280 SUB INP/OBS CARE 235MIN Diagnoses Back pain M54.9 Lumbar pain with radiation down right leg M54.50; M79.604
[2022-09-24] MEDS: dexAMETHasone 6 MG in SYRINGE 0 ML IV SCH (19:47)
[2022-09-24] MEDS: ACETAMINOPHEN 325 MG TAB PO PRN (19:52)
[2022-09-25] MEDS: LIDOCAINE 5% 1 PATCH TD SCH (08:00)
[2022-09-25] MEDS: PANTOprazole 40 MG TAB PO SCH (08:12)
[2022-09-25] MEDS: CYCLOBENZAPRINE HCL 5 MG TAB PO SCH ×2 (08:12→20:53)
[2022-09-25] MEDS: ACETAMINOPHEN 325 MG TAB PO PRN ×2 (08:12→15:57)
--- NOTE | 2022-09-25 09:02 | Hospitalist Progress Note ---
Date of Service September 25, 2022 Assessment & Plan (1) Back pain: Plan: Acute on chronic low back pain. Less than 7 days, progressive without neurovascular compromise/red flags, just got injection with Dr Bonilla from pain management in August, had been attempting to hold off on need for surgery. Unable to tolerate pain outpt w/ Tylenol/Advil/Medrol dose pack Some relief in ER w/ Tylenol, fentanyl, Dilaudid, Toradol, lidocaine, morphine MRI reviewed --> posterior disc bulge eccentric to the left at L5-S1 with an inferiorly extruded fragment. There is impingement on the transiting nerve roots and the exiting left L5 nerve at this level as well as severe central canal stenosis. This has modestly worsened as compared to 01/30/2022 Orthopedic spine consult -- Dr Paul Continued weakness w/ dorsiflexion on exam 09/25, awaiting surgery (peer-peer this afternoon to be completed) Continues decadron IV (on hold for further given possible surgery tomorrow per discussion w/ Dr Paul this morning) Protonix while on steroids for GI proph Continue flexeril BID Discussed w/ patient and added gabapentin 100mg TID for additional pain/nerve relief +BM since adding miralax, docusate/senna -- continue Will check labs in AM prior to surgery (prior labs reviewed CBC w/o leukocytosis, afebrile, renal function stable w/o electrolyte derrangement) -- no hx CAD/PR/need for CXR/EKG prior to surgery Given diet in meantime, NPO at midnight (2) Lumbar pain with radiation down right leg: Plan: 2nd to disc bulge Plan NPO at midnight for surgery tomorrow Peer-peer to be completed today for [facility] insurance SCDs in place for DVT proph, no calf tenderness on exam -- holding off chemo proph in event of back surgery tomorrow Admission and Anticipated Discharge Date Admission Date: September 23, 2022 Supervising Physician Co-Signing Physician Notes PA Supervision Note: I did not personally see or examine the patient today, but I verified all harding points of JEWELL Carreno's assessment and plan with the following exceptions/additions: None Subjective eval this morning, was disappointed to be getting a tray for breakfast as was hopeful for surgery. Pain ok at present but states he is most comfortable laying flat in bed. lidocaine patch ineffective, has not tried heat. Injection in August w/o longer relief as had in the past. Had been trying to hold off on need for surgery as long as possible. Discussed pain -- shooting numbness/tingling at times down his right leg. Discussed no loss of bowel/bladder, will try gabapentin 100mg TID and titrate as needed. Had not moved bowels much, SMALL amount 2/7, got docusate this morning and states he was able to have successful BM. Discussed continued bowel regimen to prevent constipation. Anticipating surgery tomorrow -- peer to peer this afternoon to be completed with insurance. Questions/concerns addressed at this time. Review of Systems Review of Systems: All systems reviewed & are unremarkable except as noted in HPI & below Physical Exam Physical Exam: GENERAL: WD/WN male sitting up in bed, NAD, mildly uncomfortable appearing with position changes HEENT: head normocephalic, atraumatic, mmm, trachea midline without deviation Resp: CTAB, no w/c/r on room air CV: RRR, no m/r/g, no pitting edema/calf tenderness GI: +BS, soft/NT MSK/Neuro: +straight leg on the right, slightly decreased strength with dorsiflexion/plantar flexion on the right compared to the left along with flexion at the knee, pulses palpable, cap refill wnl Psych: AOx3, cooperative Results & Data Results & Data ([facility]) Vital Signs (Past 12 Hours) Vital Signs Temp Pulse Resp BP Pulse Ox O2 Del Method 09/25/22 07:55 36.7 C 77 16 119/78 96 Room Air 09/24/22 22:35 36.4 C L 69 18 114/77 98 Room Air Laboratory Results 09/25/22 Range/Units 07:36 Blood Type O Positive Antibody Screen NEGATIVE Diagnostic Findings Lumbar Spine X-Ray 09/21/22 13:44 XR lumbar spine 2-3V HISTORY: 47 years-old Male R sided sciatica chronic low back pain COMPARISON: MR lumbar spine 01/30/2022 TECHNIQUE: 3 views of the lumbar spine FINDINGS: Unremarkable soft tissues. 5 lumbar type vertebral segments are present. Mild multilevel spondylitic spurring with intervertebral disc space narrowing and facet arthrosis. No acute fracture, subluxation or endplate erosion. No spondylolysis or spondylolisthesis. IMPRESSION: 1. No acute fracture or subluxation. 2. Mild degenerative changes of the lumbar spine are better depicted on the 01/30/2022 MRI study. ACT 112: Negative or not required by law. The above report was generated using voice recognition software. It may contain grammatical, syntax or spelling errors. Electronically signed by: Mitchell Jordan M.D. 09/21/2022 2:34 PM Lumbar Spine MRI 09/22/22 08:44 MRI OF THE LUMBAR SPINE WITHOUT IV CONTRAST CLINICAL HISTORY: Chronic low back pain. COMPARISON STUDY: Lumbar spine radiographs dated 09/21/2022. MRI of the lumbar spine dated 01/30/2022. TECHNIQUE: MRI of the lumbar spine is performed utilizing various T1 and T2- weighted sequences in the axial and sagittal planes. IV contrast was not administered for this examination. FINDINGS: Lumbar spine: Vertebral body height and alignment are maintained throughout the lumbar spine. Normal marrow signal intensity is preserved throughout the visualized bony structures. The transverse and spinous processes appear intact. There is no evidence of spondylolysis. Small anterior and lateral marginal osteophytes are seen throughout. No destructive bony lesion is seen. Intervertebral discs: Disc desiccation is seen throughout the lumbar region. There is mild to moderate loss of height at L5-S1. Minimal loss of height is seen at L1-L2 and L2-L3. Spinal cord: The visualized spinal cord is normal in morphology and signal intensity. The conus medullaris terminates at the L1-L2 interspace. The nerve roots of the cauda equina are normal in morphology and signal intensity. L1-L2: Minimal posterior disc bulge abuts the transiting nerve roots. The central canal and neural foramina are patent. L2-L3: Unremarkable. L3-L4: There is a small central posterior disc protrusion. This abuts the transiting nerve roots. There is no significant acquired compromise of the central canal at this level. The minimum AP diameter measures 7.5 mm. The neural foramina are patent. L4-L5: Unremarkable. L5-S1: There is broad-based posterior disc bulge eccentric to the left with annular fissure. A small inferiorly extruded fragment is seen eccentric to the left on axial image #29. This measures up to 7 mm. There is impingement on the transiting nerve roots, left greater than right. There is severe central canal stenosis at this level with a minimum AP diameter of 4 mm. Lateral disc bulge is seen bilaterally, left greater than right. This contributes to severe left-sided subarticular stenosis and impinges on the exiting left L5 nerve root. Milder subarticular stenosis is seen on the right. In conjunction with facet arthropathy there is at least moderate left greater than right neural foraminal narrowing. Sacrum: The visualized sacrum is normal in morphology and signal intensity. Soft tissues: The paraspinous soft tissues are normal as visualized. The retroperitoneal structures are grossly unremarkable but incompletely evaluated. IMPRESSION: 1. There is posterior disc bulge eccentric to the left at L5-S1 with an i nferiorly extruded fragment. There is impingement on the transiting nerve roots and the exiting left L5 nerve at this level as well as severe central canal stenosis. This has modestly worsened as compared to 01/30/2022. 2. Mild spondylotic changes at additional levels as above. See discussion for detailed level by level analysis. 3. No destructive bony process is seen. Dictated: 09/22/2022 10:02 AM Transcribed: 09/22/2022 10:30 AM Hilda [id number] [email or web address] Electronically signed by: Rip Bueno M.D. 09/22/2022 3:02 PM PG Care Time/CCT Total # of Minutes Spent Total Time Spent with Patient: Total time spent is greater than 50% in coordination of care (as documented) at patient's floor/unit and/or counseling patient: Coding Level of Care Code 71682 SUB INP/OBS CARE 3/50MIN Diagnoses Back pain M54.9 Lumbar pain with radiation down right leg M54.50; M79.604
[2022-09-25] MEDS: POLYETHYLENE (MIRALAX) 17 GM PACK PO SCH (09:33)
[2022-09-25] MEDS: DOCUSATE SODIUM/SENNA 50/8.6MG TAB PO SCH (09:33)
--- NOTE | 2022-09-25 12:10 | Orthopedic Progress Note ---
Date of Service September 25, 2022 Assessment & Plan (1) Lumbar disc herniation: Plan: This time patient has acute on chronic disc herniation L5-S1 with severe stenosis and radiculopathy. He is having progressive neuro decline and inability ambulate. We are hoping to obtain authorization for surgery tomorrow. We will make him n.p.o. after midnight. Admission and Anticipated Discharge Date Admission Date: September 23, 2022 Subjective Patient continues to have incapacitating back and right leg pain. His ability to ambulate continues to decline. He is obviously frustrated with the current situation. Physical Exam Physical Exam: Patient is lying supine. This is the most comfortable position. He has dense numbness to light touch to the right lower extremity compared to left. His dorsiflexion is diminished compared to the left. Results & Data ([facility]) Vital Signs (Past 12 Hours) Vital Signs Temp Pulse Resp BP Pulse Ox O2 Del Method 09/25/22 07:55 36.7 C 77 16 119/78 96 Room Air
[2022-09-25] MEDS: GABAPENTIN 100 MG CAP PO SCH ×2 (13:38→20:53)
[2022-09-25 14:01] LABS: Appearance Urine Clear (Clear); Bilirubin Urine Negative (Negative); Blood Urine Negative (Negative); Color Urine Yellow; Glucose Urine UA Negative (Negative); Ketones Urine Negative (Negative); Leukocyte Esterase Urine Negative (Negative); Nitrite Urine Negative (Negative); Protein Urine Negative (Negative); Specific Gravity Urine 1.007 (1.000-1.030); Urobilinogen Urine Negative (Negative)
[2022-09-25] MEDS: HYDROmorphone INJ 1 MG/ML SYRINGE IV PRN (20:52)
[2022-09-26] MEDS ORDERED: GLYCOPYRROLATE 0.2 MG/ML VIAL ONE (06:59)
[2022-09-26] MEDS ORDERED: PROPOFOL IV EMULSION 10 MG/ML 20 ML VIAL IV ONE (06:59)
[2022-09-26] MEDS ORDERED: SUGAMMADEX SODIUM 200 MG/2 ML VIAL IV ONE (06:59)
[2022-09-26] MEDS ORDERED: ROCURONIUM BROMIDE 10 MG/ML 5 ML VIAL IV ONE (06:59)
[2022-09-26] MEDS ORDERED: SUCCINYLCHOLINE CHLORIDE 20 MG/ML 10 ML VIAL IV ONE (06:59)
[2022-09-26] MEDS ORDERED: fentaNYL citrate 100 MCG/2 ML VIAL ONE (06:59)
[2022-09-26] MEDS ORDERED: DEXAMETHASONE SOD INJ 4 MG/ML VIAL ONE ×2 (06:59→07:04)
[2022-09-26] MEDS ORDERED: ONDANSETRON INJ 2 MG/ML 2 ML VIAL ONE (06:59)
[2022-09-26] MEDS ORDERED: BUPIVACAINE/EPINEPHRINE 0.25% 1:200,000 30 ML VIAL ONE (07:06)
[2022-09-26] MEDS ORDERED: ceFAZolin 330 MG/ML 1 GM VIAL ONE ×2 (07:06→08:04)
--- NOTE | 2022-09-26 07:34 | History & Physical Bridge Note ---
Date of Service September 26, 2022 History & Physical Bridge Note I have examined the patient, reviewed the History & Physical and in the interval since the performance of the History & Physical I have noted the following changes of clinical significance: no changes noted Patient continues to demonstrate incapacitating pain with ambulation, dense numbness to the right lower extremity as well as progressive weakness particularly to dorsiflexion. Imaging presents severe spinal stenosis with acute on chronic disc herniation concordant with his clinical presentation. I am recommending emergent decompression and fusion L5-S1 to prevent permanent irreversible neurologic damage.
[2022-09-26] MEDS ORDERED: ONDANSETRON INJ 2 MG/ML 2 ML VIAL IV PRN ×2 (07:38→11:17)
[2022-09-26] MEDS ORDERED: PROMETHAZINE HCL 12.5 MG in SODIUM CHLORIDE 0.9% 50 ML IV PRN ×2 (07:38→11:17)
[2022-09-26] MEDS ORDERED: ATROPINE SULFATE 0.1 MG/ML 10ML SYR IV PRN (07:38)
[2022-09-26] MEDS ORDERED: HYDROmorphone INJ 2 MG/ML SYR/VIAL ONE (08:14)
--- NOTE | 2022-09-26 08:32 | Hospitalist Progress Note ---
Date of Service September 26, 2022 Assessment & Plan (1) Back pain: Plan: Acute on chronic low back pain. Less than 7 days, progressive without neurovascular compromise/red flags, just got injection with Dr Bonilla from pain management in August, had been attempting to hold off on need for surgery. Unable to tolerate pain outpt w/ Tylenol/Advil/Medrol dose pack Some relief in ER w/ Tylenol, fentanyl, Dilaudid, Toradol, lidocaine, morphine but unable to ambulate or do anything except lay in bed without pain w/ movement/risk of falling from pain/weakness in his RLE MRI reviewed --> posterior disc bulge eccentric to the left at L5-S1 with an inferiorly extruded fragment. There is impingement on the transiting nerve roots and the exiting left L5 nerve at this level as well as severe central canal stenosis. This has modestly worsened as compared to 01/30/2022 Ortho consulted, Dr Paul Continued weakness w/ dorsiflexion on exam 09/25, progressive deficits. Decision by orthopedics to proceed w/ emergent surgery. Decadron held last evening prior to surgery per discussion w/ Dr Paul, he will resume post-op s/p #1 lumbar decompression with bilateral medial facetectomies and foraminotomies L5-S1. #2 posterior spinal fusion L5-S1. 3 placed posterior instrumentation of S1. #4 interbody fusion L5-S1. #5 placement of Spira 14 x 26 mm cage x2 and L5-S1. #6 placement locally harvested morselized autograft and posterior gutters. #7 placement of I factor bone of the talus in the interbody space and posterior lateral gutters. EBL 150cc Bowel regimen/pain control prn -- +BM 09/25, Flexeril BID, gabapentin 100mg TID PT/OT consulted DVT proph- SCDs, alon lorenz (2) Lumbar pain with radiation down right leg: Plan: 2nd to disc bulge Plan continued inpatient stay Admission and Anticipated Discharge Date Admission Date: September 23, 2022 Supervising Physician Co-Signing Physician Notes JEWELL Supervision Note: I did not personally see or examine the patient today, but I verified all harding points of JEWELL Carreno's assessment and plan with the following exceptions/additions: None Subjective eval this afternoon following surgery. legs feeling much better but pain creeping up to a 7/10 and wanting something for pain. Discussed I spoke with Dr Paul and his surgery was pretty extensive and hopefully will have continued improvement in symptoms. Anticipating staying at least until Friday and monitoring output from drain as well as therapy evals. No nausea/vomiting, chest pain or shortness of breath. Tolerating gabapentin and agreeable to continue in meantime for additional pain control. Questions/concerns addressed at this time. updated at bedside. Review of Systems Review of Systems: All systems reviewed & are unremarkable except as noted in HPI & below Physical Exam Physical Exam: GENERAL: WD/WN laying in bed post-op, NAD but reporting moderate pain to back, at bedside HEENT: head normocephalic, atraumatic, mmm, trachea midline Resp: CTAB, diminished in bases, on room air CV: RRR, no m/r/g, no pitting edema/calf tenderness GI: +BS, slight distension, soft/NT MSK/Neuro: no slurred speech/facial droop, answering questions appropriately,dressing c/d/i, JOELLEN w/ bloody drainage present Improvement in dorsiflexion/plantar flexion on the right compared to the left since yesterday, NVI, slight numbness to thigh on the right (reportedly improving), pulses palpable, cap refill wnl, alon hose/scds in place Psych: AOx3, pleasant and cooperative with care Results & Data Results & Data ([facility]) Vital Signs (Past 12 Hours) Vital Signs Temp Pulse Resp BP Pulse Ox O2 Del Method 09/26/22 06:55 36.8 C 77 18 130/93 98 Room Air 09/26/22 06:46 36.6 C 87 18 136/85 95 Room Air 09/25/22 21:33 36.8 C 75 20 146/88 H 98 Room Air Laboratory Results 09/26/22 09/26/22 09/25/22 Range/Units 11:38 11:38 13:15 WBC 10.98 H (4.8-10.8) K/ul RBC 4.98 (4.70-6.10) M/uL Hgb 15.1 (14.0-18.0) g/dl Hct 44.4 (42.0-52.0) % MCV 89.2 (80.0-100.0) fL MCH 30.3 (25.0-34.0) pg MCHC 34.0 (32.0-36.0) g/dL RDW Std Deviation 44.7 (36.4-46.3) fL RDW Coeff of Bri 13.7 (11.5-14.5) % Plt Count 255 (130-400) K/uL MPV 10.4 (9.4-12.4) fL Sodium 139 (136-145) mmol/L Potassium 4.3 (3.5-5.1) mmol/L Chloride 105 (98-107) mmol/L Carbon Dioxide 29 (21-32) mmol/L Anion Gap 5 (3-11) BUN 22 (6-23) mg/dl Creatinine 1.20 (0.6-1.4) mg/dl Est Cr Clr Drug Dosing 113.9 ml/min Est GFR ( Amer) 83.5 ml/min Est GFR (Non-Af Amer) 72.1 ml/min BUN/Creatinine Ratio 18.3 (10-20) Glucose 118 H (70-99(Fasting)) mg/dl Calcium 8.8 (8.5-10.1) mg/dl Magnesium 2.2 (1.7-2.4) mg/dl Urine Color Yellow Urine Appearance Clear (Clear) Urine pH 7.0 (4.5-7.5) Ur Specific Hixson 1.007 (1.000-1.030) Urine Protein Negative (Negative) Urine Glucose (UA) Negative (Negative) Urine Ketones Negative (Negative) Urine Blood Negative (Negative) Urine Nitrite Negative (Negative) Urine Bilirubin Negative (Negative) Urine Urobilinogen Negative (Negative) Ur Leukocyte Esterase Negative (Negative) Diagnostic Findings Lumbar Spine X-Ray 09/26/22 07:00 INTRAOPERATIVE RADIOGRAPHS CLINICAL HISTORY: Lumbar fusion surgery. Fluoro time: 22 seconds Exposure: 22.40 mGy FINDINGS: 2 spot fluoroscopic images of the lumbar spine are presented. There has been discectomy at L5-S1 with laminectomy and posterior fusion at this level. Interpedicular screws are in place. The orthopedic hardware appears int act. IMPRESSION: Intraoperative images from lumbar spinal fusion surgery as above. Electronically signed by: Rip Bueno M.D. 09/26/2022 10:38 AM PG Care Time/CCT Total # of Minutes Spent Total Time Spent with Patient: Total time spent is greater than 50% in coordination of care (as documented) at patient's floor/unit and/or counseling patient: Coding Level of Care Code 56232 SUB INP/OBS CARE 2/35MIN Diagnoses Back pain M54.9 Lumbar pain with radiation down right leg M54.50; M79.604
[2022-09-26] MEDS ORDERED: FLOSEAL HEMOSTATIC MATRIX 10ML TOP ONE (08:43)
--- NOTE | 2022-09-26 09:45 | Operative Report ---
Post Operative Report Pre & Post Diagnosis Operation Date: 09/26/22 07:45 Pre-Op Diagnosis: Lumbar disc herniation with radiculopathy Post-Op Diagnosis: Same I identified the patient and participated in the time-out.: Yes Procedure Operation Date: 09/26/22 07:45 Actual Procedures #1 lumbar decompression with bilateral medial facetectomies and foraminotomies L5-S1. #2 posterior spinal fusion L5-S1. 3 placed posterior instrumentation of S1. #4 interbody fusion L5-S1. #5 placement of Spira 14 x 26 mm cage x2 and L5-S1. #6 placement locally harvested morselized autograft and posterior gutters. #7 placement of I factor bone of the talus in the interbody space and posterior lateral gutters. Surgeon Garth Paul, Die Repairer Trimmer Dies Doris Gary Estimated Blood Loss 150 Findings See Below Patient is 6 foot 3 weighing 135 kg with a BMI in excess of 37. The patient's body habitus did contribute to significant technical difficulty requiring her deepest retractors and longer instruments in order to perform his procedure. This at least 50% increased operative time. Specimens None Indications This is a 47-year-old male who presents with severe radiculopathy inability to ambulate and progressive neuro deficit subsequently is here for emergent decompression fusion to avoid irreversible permanent nerve damage. Description of Procedure Patient was met with identified informed consent obtained. Patient was then taken to the operative suite underwent an patient placed in a prone position on the Silviano frame on top of the Dre table. All bony promises well-padded eyes inspected to ensure no external pressure placed on the. This point lumbar spine was prepped and draped in a sterile fashion. Sharp dissection with assistance of Bovie cautery was formed down to and exposing the lamina and transverse processes of L5 and sacral ala bilaterally. From caudal to cephalad fashion complete laminectomy L5 was performed he did require aggressive bilateral medial facetectomies to address the severe some articular stenosis and disc herniations under both facets. This does create iatrogenic instability subsequently did fuse. He I then placed pedicle screws in L5 and S1 levels bilaterally with assistance of fluoroscopy and the proper sized yoel placed. By way of transforaminal portion right discectomy was performed endplates curetted to subcortically bone and a 14 x 26 mm spiral cage with I factor tapped in position. I then approached the left transforaminal region remove the remainder of the disc curetted the endplates and placed a second 14 x 26 mm spiral cage with I factor into position. The rods were then locked in 5 position bilaterally. The transverse processes of L5 and sacral ala burred to subcortically bone. I factor bone of the test and locally harvested morselized autograft was placed in the posterior gutters. 15 round JOELLEN drain inserted. Incision was then closed with 1 Vicryl the fascia 2-0 Vicryl subcutaneously and 4 Monocryl for final skin closure. Steri-Strips dressings placed. Patient awakened taken to PACU in stable condition. Please note spinal cord monitoring was utilized at the procedure no changes noted. Lastly Doris Gary was present at the entire surgeon while patient positioning complex portions of the surgery and final skin closure. I attest to the content of the Intraoperative Record and any orders documented therein. Any exceptions are noted below.
[2022-09-26] MEDS: HYDROmorphone INJ 1 MG/ML SYRINGE IV PRN ×6 (10:05→10:39)
--- NOTE | 2022-09-26 10:39 | Fluoroscopy Report ---
INTRAOPERATIVE RADIOGRAPHS CLINICAL HISTORY: Lumbar fusion surgery. Fluoro time: 22 seconds Exposure: 22.40 mGy FINDINGS: 2 spot fluoroscopic images of the lumbar spine are presented. There has been discectomy at L5-S1 with laminectomy and posterior fusion at this level. Interpedicular screws are in place. The or thopedic hardware appears intact. IMPRESSION: Intraoperative images from lumbar spinal fusion surgery as above. Electronically signed by: Rip Bueno M.D. 09/26/2022 10:38 AM
[2022-09-26] MEDS ORDERED: ONDANSETRON 4 MG OD TAB PO PRN (11:17)
[2022-09-26] MEDS ORDERED: hydrOXYzine HCl 25 MG TAB PO PRN (11:17)
[2022-09-26] MEDS ORDERED: FAMOTIDINE 20 MG TAB PO PRN (11:17)
[2022-09-26] MEDS ORDERED: bisacodyL 10 MG SUPP PR PRN (11:17)
[2022-09-26] MEDS ORDERED: LORazepam 2 MG/1 ML VIAL IV PRN (11:17)
[2022-09-26] MEDS ORDERED: SOD PHOSPHATE/SOD BIPHOSPHATE ENEMA 132 ML BTL PR PRN (11:17)
[2022-09-26] MEDS ORDERED: METOCLOPRAMIDE HCL INJ 5 MG/ML 2 ML VIAL IV PRN (11:17)
[2022-09-26] MEDS ORDERED: ALUMINUM/MAGNESIUM SUSP 30 ML UDC PO PRN (11:17)
[2022-09-26] MEDS ORDERED: HYDROmorphone INJ 0.5 MG/0.5 ML SYR IV PRN (11:17)
[2022-09-26] MEDS ORDERED: DO NOT ADMINISTER PNEUMOCOCCAL VACCINE PRN (11:17)
[2022-09-26] MEDS ORDERED: NALOXONE HCL 0.4 MG/1 ML VIAL/CARP IV PRN (11:17)
[2022-09-26] MEDS ORDERED: MAGNESIUM HYDROXIDE SUSP 30 ML UDC PO PRN (11:17)
[2022-09-26] MEDS ORDERED: LORazepam 0.5 MG TAB PO PRN (11:17)
[2022-09-26] MEDS ORDERED: ACETAMINOPHEN 1,000 MG/100 ML VIAL IV PRN (11:17)
[2022-09-26] MEDS ORDERED: HYDROmorphone INJ 1 MG/ML SYRINGE IV PRN (11:17)
[2022-09-26] MEDS ORDERED: diphenhydrAMINE Capsule 25 MG CAP PO PRN (11:17)
[2022-09-26] MEDS ORDERED: DO NOT ADMINISTER FLU VACCINE PRN (11:17)
[2022-09-26] MEDS: GABAPENTIN 100 MG CAP PO SCH ×3 (11:33→20:44)
[2022-09-26 12:10] LABS: Hematocrit (blood only) 44.4 % (42.0-52.0); Hemoglobin 15.1 g/dl (14.0-18.0); Mean Corpuscular Hemoglobin 30.3 pg (25.0-34.0); Mean Corpuscular Volume 89.2 fL (80.0-100.0); Mean Platelet Volume 10.4 fL (9.4-12.4); Platelet Count 255 K/uL (130-400); RDW Coefficient of Variation 13.7 % (11.5-14.5); RDW Standard Deviation 44.7 fL (36.4-46.3); Red Blood Count 4.98 M/uL (4.70-6.10); White Blood Count 10.98 K/ul (4.8-10.8)
[2022-09-26] MEDS: CYCLOBENZAPRINE HCL 5 MG TAB PO SCH (12:14)
[2022-09-26] MEDS: PANTOprazole 40 MG TAB PO SCH (12:14)
[2022-09-26] MEDS: DOCUSATE SODIUM/SENNA 50/8.6MG TAB PO SCH ×2 (12:14→20:44)
[2022-09-26] MEDS: POLYETHYLENE (MIRALAX) 17 GM PACK PO SCH (12:14)
[2022-09-26] MEDS: LIDOCAINE 5% 1 PATCH TD SCH (12:14)
[2022-09-26] MEDS: traMADol HCL 50 MG TABLET PO PRN ×3 (12:28→23:12)
[2022-09-26] MEDS: LACTATED RINGER'S 1,000 ML IV SCH ×2 (12:29→20:45)
[2022-09-26 12:32] LABS: BUN Creatinine Ratio 18.3 (10-20); Calcium 8.8 mg/dl (8.5-10.1); Creatinine Clr Calc Pharmacy 113.9 ml/min; Est GFR (African American) 83.5 ml/min; Est GFR (Non-African American) 72.1 ml/min; Magnesium 2.2 mg/dl (1.7-2.4); Potassium 4.3 mmol/L (3.5-5.1)
--- NOTE | 2022-09-26 13:00 | Anesthesiology Progress Note ---
Date of Service September 26, 2022 Anesthesia Post Procedure Vital Signs Vital Signs: Temp Pulse Pulse Pulse Resp BP BP 09/26/22 12:24 66 18 144/78 H 09/26/22 11:45 36.4 C L 74 14 127/83 09/26/22 11:18 36.5 C 76 16 128/84 09/26/22 10:15 66 11 L 108/71 09/26/22 11:05 67 10 L 139/70 09/26/22 10:55 66 13 122/82 09/26/22 10:45 36 C L 70 12 134/79 09/26/22 10:35 65 13 166/87 H 09/26/22 10:25 64 11 L 158/96 H 09/26/22 10:05 62 10 L 150/67 H 09/26/22 09:55 36 C L 73 16 130/86 09/26/22 06:55 36.8 C 77 18 130/93 09/26/22 06:46 36.6 C 87 18 136/85 09/25/22 21:33 36.8 C 75 20 146/88 H 09/25/22 15:17 36.5 C 82 16 133/84 Pulse Ox O2 Del Method O2 Flow Rate 09/26/22 12:24 94 Room Air 09/26/22 11:45 Room Air 09/26/22 11:18 95 Room Air 09/26/22 10:15 95 Nasal Cannula 2 09/26/22 11:05 95 Room Air 09/26/22 10:55 96 Room Air 09/26/22 10:45 99 Nasal Cannula 2 09/26/22 10:35 98 Nasal Cannula 2 09/26/22 10:25 99 Nasal Cannula 2 09/26/22 10:05 91 Room Air 09/26/22 09:55 97 Room Air 09/26/22 06:55 98 Room Air 09/26/22 06:46 95 Room Air 09/25/22 21:33 98 Room Air 09/25/22 15:17 96 Room Air Pain Intensity Lower Back: Pain Intensity: 5 Transfer of Care Handoff Completed per policy Notes Mental Status: alert / awake / arousable Patient Amnestic to Procedure: Yes Nausea / Vomiting: adequately controlled Pain: adequately controlled Airway Patency, RR, SpO2: stable & adequate BP & HR: stable & adequate Hydration State: stable & adequate Anesthetic Complications: no major complications apparent
[2022-09-26] MEDS: oxyCODONE HCL IR 5 MG TAB (IMMEDIATE RELEASE) PO PRN ×2 (15:38→20:44)
[2022-09-26] MEDS: ceFAZolin 2000MG 2,000 MG/15 ML SYR IV SCH ×2 (17:11→23:12)
[2022-09-27] MEDS: oxyCODONE HCL IR 5 MG TAB (IMMEDIATE RELEASE) PO PRN ×2 (03:53→08:57)
[2022-09-27] MEDS: LACTATED RINGER'S 1,000 ML IV SCH (04:27)
[2022-09-27] MEDS: POLYETHYLENE (MIRALAX) 17 GM PACK PO SCH ×3 (05:58→17:39)
[2022-09-27] MEDS: traMADol HCL 50 MG TABLET PO PRN ×4 (06:09→21:15)
--- NOTE | 2022-09-27 08:21 | Hospitalist Progress Note ---
Date of Service September 27, 2022 Assessment & Plan (1) Back pain: Plan: Acute on chronic low back pain, progressive with severe radiculopathy w/ ambulation and failing outpatient conservative treatment w/ PO pain meds/steroids, injections w/ pain management as well last month MRI w/ posterior disc bulge eccentric to the left at L5-S1 with an inferiorly extruded fragment. There is impingement on the transiting nerve roots and the exiting left L5 nerve at this level as well as severe central canal stenosis. This has modestly worsened as compared to 01/30/2022 Ortho consulted, Dr Paul POD#1 s/p #1 lumbar decompression with bilateral medial facetectomies and foraminotomies L5-S1. #2 posterior spinal fusion L5-S1. 3 placed posterior instrumentation of S1. #4 interbody fusion L5-S1. #5 placement of Spira 14 x 26 mm cage x2 and L5-S1. #6 placement locally harvested morselized autograft and posterior gutters. #7 placement of I factor bone of the talus in the interbody space and posterior lateral gutters. EBL 150cc Hgb stable on repeat, 15.1--> 14 w/ IVF with surgery WBC wnl, afebrile Dexamethasone IV daily per primary service Bowel regimen/pain control/antiemetics prn -- +BM 2/8, continues on miralax Q6H, senna/docusate 2tabs HS PT/OT consulted Continued ambulation encouraged DVT proph- SCDs, alon hose Anticipating discharge tomorrow (2) Lumbar pain with radiation down right leg: Plan: 2nd to disc bulge Plan continued inpatient stay, PT/OT consults and anticipating discharge tomorrow case discussed w/ Dr Paul and if remains stable/continued improvement he will discharge patient tomorrow Admission and Anticipated Discharge Date Admission Date: September 23, 2022 Supervising Physician Co-Signing Physician Notes PA Supervision Note: I did not personally see or examine the patient today, but I verified all harding points of JEWELL Carreno's assessment and plan with the following exceptions/additions: None Subjective patient evaluated this morning, feeling much better, ambulating halls. passing gas but no BM yet, has made several attempts w/o success, remains on bowel regimen. pain to his incision but lower leg symptoms almost completely resolving. Numbness that was to his knee is also improving and just slight numbness to his thigh. Anticipating discharge tomorrow. No fever/chills, chest pain, shortness of breath, nausea or vomiting. Questions/concerns addressed at this time. Physical Exam Physical Exam: GENERAL: WD/WN sitting up in chair post op, NAD HEENT: head normocephalic, atraumatic, mmm, trachea midline Resp: CTAB, no w/c, on room air CV: RRR, no m/r/g, no pitting edema/calf tenderness GI: +BS, slight distension, soft/NT MSK/Neuro: no slurred speech/facial droop, answering questions appropriately,dressing c/d/i, JOELLEN w/ bloody drainage present Significant improvement in dorsiflexion/plantar flexion on the right compared to the left, ambulating without radiculopathy symptoms reported, NVI, slight numbness to thigh on the right (continued improvement), pulses palpable, cap refill wnl, alon hose/scds in place Psych: AOx3, pleasant and cooperative with care Results & Data Results & Data ([facility]) Vital Signs (Past 12 Hours) Vital Signs Temp Pulse Resp BP BP Pulse Ox O2 Del Method 09/27/22 07:55 Room Air 09/27/22 07:21 36.5 C 68 16 110/74 96 Room Air 09/27/22 04:21 36.5 C 61 18 136/86 95 Room Air 09/26/22 23:15 36.9 C 78 20 129/82 95 Room Air Laboratory Results 09/27/22 09/27/22 09/26/22 Range/Units 08:13 08:13 11:38 WBC 10.59 (4.8-10.8) K/ul RBC 4.74 (4.70-6.10) M/uL Hgb 14.0 (14.0-18.0) g/dl Hct 41.3 L (42.0-52.0) % MCV 87.1 (80.0-100.0) fL MCH 29.5 (25.0-34.0) pg MCHC 33.9 (32.0-36.0) g/dL RDW Std Deviation 43.4 (36.4-46.3) fL RDW Coeff of Bri 13.5 (11.5-14.5) % Plt Count 271 (130-400) K/uL MPV 10.4 (9.4-12.4) fL Immature Gran % (Auto) 0.5 % Neut % (Auto) 69.1 % Lymph % (Auto) 18.4 % [place] % (Auto) 11.7 % Eos % (Auto) 0.1 % Baso % (Auto) 0.2 % Neut # (Auto) 7.32 H (1.40-6.50) K/uL Lymph # (Auto) 1.95 (1.2-3.4) K/uL [place] # (Auto) 1.24 H (0.11-0.59) K/uL Eos # (Auto) 0.01 (0-0.50) K/uL Baso # (Auto) 0.02 (0-0.2) K/uL Immature Gran # (Auto) 0.05 (0.01-0.20) K/uL Sodium 137 139 (136-145) mmol/L Potassium 4.2 4.3 (3.5-5.1) mmol/L Chloride 103 105 (98-107) mmol/L Carbon Dioxide 29 29 (21-32) mmol/L Anion Gap 5 5 (3-11) BUN 15 22 (6-23) mg/dl Creatinine 0.95 1.20 (0.6-1.4) mg/dl Est Cr Clr Drug Dosing 143.9 113.9 ml/min Est GFR ( Amer) 110.8 83.5 ml/min Est GFR (Non-Af Amer) 95.6 72.1 ml/min BUN/Creatinine Ratio 15.8 18.3 (10-20) Glucose 96 118 H (70-99(Fasting)) mg/dl Calcium 8.9 8.8 (8.5-10.1) mg/dl Magnesium 2.2 (1.7-2.4) mg/dl PG Care Time/CCT Total # of Minutes Spent Total Time Spent with Patient: Total time spent is greater than 50% in coordination of care (as documented) at patient's floor/unit and/or counseling patient: Coding Level of Care Code 83644 SUB INP/OBS CARE 2/35MIN Diagnoses Back pain M54.9 Lumbar pain with radiation down right leg M54.50; M79.604
[2022-09-27 08:52] LABS: Basophils # (auto) 0.02 K/uL (0-0.2); Basophils % (auto) 0.2 %; Eosinophils # (auto) 0.01 K/uL (0-0.50); Eosinophils % (auto) 0.1 %; Hematocrit (blood only) 41.3 % (42.0-52.0); Immature Granulocytes # (auto) 0.05 K/uL (0.01-0.20); Immature Granulocytes % (auto) 0.5 %; Lymphocytes # (auto) 1.95 K/uL (1.2-3.4); Lymphocytes % (auto) 18.4 %; Mean Corpuscular Hemoglobin 29.5 pg (25.0-34.0); Mean Corpuscular Hgb Conc 33.9 g/dL (32.0-36.0); Mean Corpuscular Volume 87.1 fL (80.0-100.0); Mean Platelet Volume 10.4 fL (9.4-12.4); Monocytes # (auto) 1.24 K/uL (0.11-0.59); Monocytes % (auto) 11.7 %; Neutrophils # (auto) 7.32 K/uL (1.40-6.50); Neutrophils % (auto) 69.1 %; Platelet Count 271 K/uL (130-400); RDW Coefficient of Variation 13.5 % (11.5-14.5); RDW Standard Deviation 43.4 fL (36.4-46.3); Red Blood Count 4.74 M/uL (4.70-6.10); White Blood Count 10.59 K/ul (4.8-10.8)
[2022-09-27] MEDS: dexAMETHasone 6 MG in SYRINGE 0 ML IV SCH (08:57)
[2022-09-27] MEDS: GABAPENTIN 100 MG CAP PO SCH ×3 (08:57→20:04)
[2022-09-27 08:58] LABS: BUN Creatinine Ratio 15.8 (10-20); Calcium 8.9 mg/dl (8.5-10.1); Creatinine Clr Calc Pharmacy 143.9 ml/min; Est GFR (African American) 110.8 ml/min; Est GFR (Non-African American) 95.6 ml/min; Potassium 4.2 mmol/L (3.5-5.1)
--- NOTE | 2022-09-27 09:47 | Orthopedic Progress Note ---
Date of Service September 27, 2022 Assessment & Plan (1) Lumbar pain with radiation down right leg: Plan: Patient is pain is markedly improved. He is now able to ambulate without severe radiculopathy. He feels the strength is improving. He also notes improvement of his numbness. At this time we will monitor him today and see how he tolerates physical therapy consider possible discharge home tomorrow. Admission and Anticipated Discharge Date Admission Date: September 23, 2022 Subjective Back pain controlled leg symptoms markedly improved patient has been ambulating the halls. He feels that his numbness is also improving. Physical Exam Physical Exam: Patient is in the chair at the bedside. He appears comfortable. Is good strength testing. Results & Data ([facility]) Vital Signs (Past 12 Hours) Vital Signs Temp Pulse Resp BP BP Pulse Ox O2 Del Method 09/27/22 07:55 Room Air 09/27/22 07:21 36.5 C 68 16 110/74 96 Room Air 09/27/22 04:21 36.5 C 61 18 136/86 95 Room Air 09/26/22 23:15 36.9 C 78 20 129/82 95 Room Air
[2022-09-27] MEDS: ACETAMINOPHEN 500 MG TAB PO PRN (20:03)
[2022-09-27] MEDS: DOCUSATE SODIUM/SENNA 50/8.6MG TAB PO SCH (20:05)
[2022-09-28] MEDS: traMADol HCL 50 MG TABLET PO PRN (01:29)
[2022-09-28] MEDS: GABAPENTIN 100 MG CAP PO SCH (08:22)
[2022-09-28] MEDS: dexAMETHasone 6 MG in SYRINGE 0 ML IV SCH (08:23)
[2022-09-28] MEDS: ACETAMINOPHEN 500 MG TAB PO PRN (08:23)
--- NOTE | 2022-09-28 09:08 | Hospitalist Progress Note ---
Date of Service September 28, 2022 Assessment & Plan (1) Back pain: Plan: Acute on chronic low back pain, progressive with severe radiculopathy w/ ambulation and failing outpatient conservative treatment w/ PO pain meds/steroids, injections w/ pain management as well last month MRI w/ posterior disc bulge eccentric to the left at L5-S1 with an inferiorly extruded fragment. There is impingement on the transiting nerve roots and the exiting left L5 nerve at this level as well as severe central canal stenosis. This has modestly worsened as compared to 01/30/2022 Ortho consulted, Dr Paul POD#2 s/p #1 lumbar decompression with bilateral medial facetectomies and foraminotomies L5-S1. #2 posterior spinal fusion L5-S1. 3 placed posterior instrumentation of S1. #4 interbody fusion L5-S1. #5 placement of Spira 14 x 26 mm cage x2 and L5-S1. #6 placement locally harvested morselized autograft and posterior gutters. #7 placement of I factor bone of the talus in the interbody space and posterior lateral gutters. EBL 150cc Hgb stable on repeat, 15.1--> 14 w/ IVF with surgery WBC wnl, afebrile Dexamethasone IV daily per primary service Bowel regimen/pain control/antiemetics prn -- doing well on oral pain control -- +BM 09/25, 09/27. discussed to continue bowel regimen at home if not having regular bowel movements with pain medications PT/OT consulted DVT proph- SCDs, alon lorenz Anticipating discharge after seen by Dr Palu (2) Lumbar pain with radiation down right leg: Plan: 2nd to disc bulge Plan planning for discharge after seen by Dr Paul -- as discussed 09/27, he will do discharge instructions Please call with any questions/concerns. Admission and Anticipated Discharge Date Admission Date: September 23, 2022 Supervising Physician Co-Signing Physician Notes PA Supervision Note: I did not personally see or examine the patient today, but I verified all harding points of JEWELL Carreno's assessment and plan with the following exceptions/additions: None Subjective eval this morning, doing well sitting up in chair eating breakfast states getting better everyday, numbness continues to resolve, strength great b/l LE. eating/drinking no issue, +BM overnight. Pain controlled with oral agents and discussed bowel regimen at d/c if using pain meds/not moving bowels to prevent issues. Dr Paul to be around in next hour and planning for discharge. Discussed he will prepare discharge as discussed with him yesterday. Physical Exam Physical Exam: GENERAL: WD/WN sitting up in chair eating breakfast, NAD HEENT: head normocephalic, mmm, trachea midline Resp: CTAB, no w/c/r, on RA CV: RRR, no mr/g/, no pitting edema/calf tenderness GI: +BS, soft/NT MSK/Neuro: no slurred speech/facial droop, answering questions appropriately dressing c/d/i, JOELLEN w/ bloody drainage present strength significantly improved and 5/5 b/l LE w/ dorsiflexion/plantar flexion, NVI, slight numbness to thigh on the right continues to receed, pulses palpable, calves supple, pulses palpable Psych: AOx3, pleasant and cooperative with care Results & Data Results & Data ([facility]) Vital Signs (Past 12 Hours) Vital Signs Temp Pulse Resp BP Pulse Ox O2 Del Method 09/28/22 07:11 36.6 C 82 16 145/89 H 94 Room Air PG Care Time/CCT Total # of Minutes Spent Total Time Spent with Patient: Total time spent is greater than 50% in coordination of care (as documented) at patient's floor/unit and/or counseling patient: Coding Level of Care Code 11809 SUB INP/OBS CARE 1/25MIN Diagnoses Back pain M54.9 Lumbar pain with radiation down right leg M54.50; M79.604
--- NOTE | 2022-09-28 11:30 | Discharge Summary ---
Date of Service September 28, 2022 Admission HPI Per Admitting Provider Back pain since Friday Severe, radiaing down R leg down into R lateral ankle No weakness no bowel or bladder change Gradually worsened Took methylpred 5 day taper which did not help Fentany, hydromorphine, toradol, lidocaine, morhpine, tylenol with some pain relief at rest but cannot walk due to pain Pt with lumbar injection Aug 22 did help, pain improved until this past friday. Original similar pain stared halloween an dsignificantly improved after injection. No click/pop/twist injury at onset Medical History: Reviewed Medications: Reviewed Surgical History: Reviewed Allergies: Reviewed Social History: No tobacco, Etoh none Code Status: Emergency contact is Niya. Full Code Principal Diagnosis Lumbar disc herniation with radiculopathy Discharge Data Allergies Allergy/AdvReac Type Severity Reaction Status Date / Time Penicillins Allergy Mild Rash Verified 09/21/22 16:56 Consultations 09/21/22 16:22 ED Decision to Admit Stat 09/22/22 15:41 Consult Orthopedic Surgery Routine Procedures Performed Operation Date: 09/26/22 07:45 Actual Procedures p L5-S1 Decompression and Fusion with Spinal Cord Monitoring(Bilateral) - Garth Paul DO Ordered Studies 09/22/22 08:44 MRI Lumbar Spine [MR lumbar spine wo con] Urgent 09/26/22 07:00 FL lumbar spine 2-3V Routine Hospital Course (1) Lumbar disc herniation: Patient was admitted from the emergency room with marked decline in status and inability to ambulate and severe right leg pain. Upon admission updated imaging was performed demonstrating worsening of his stenosis and neural compression at L5-S1 and after having failed extensive course of nonoperative care noting continued decline in status we moved towards surgical intervention. Unfortunately this was denied multiple times from his insurance. Despite gross pathology and inability to function. Throughout his stay we were noting continued neurologic decline with dense numbness in the right lower extremity and progressive foot drop. Subsequently we moved toward surgery. He underwent decompression fusion tolerated well with postop day 1 he was having marked improvement of his radiculopathy and beginning to ambulate comfortably with physical therapy he progressed to postop day #2 strength improving on exam JOELLEN drain decreasing appropriately. Subsequently discharged home. Discharge orders instructions from the chart for further review. Total Time Total Time Spent Total Time Spent (In Minutes): 20 minutes Discharge Plan Discharge Items Patient Disposition: Home - Self-Care Reason For Visit: INTRACTABLE BACK PAIN Discharge Diagnosis: Lumbar disc herniation with spinal stenosis and radiculopathy Activity: As commented below Non-emergency contact: Primary Care Provider Call non-emergency contact if: you have any medication questions Follow-up/Referrals: Yolanda Schaefer MD [Primary Care Provider] - Diet: Regular Addtl Attending Provider Instructions: ACTIVITY RECOMMENDATIONS: SELF CARE INSTRUCTIONS AFTER THORACIC/LUMBAR FUSIONS 1. You may walk to your tolerance. It is good exercise for your legs and back. Expect some back and intermittent leg aches and pains. 2. You may perform "counter-top" level activities (make a sandwich, candida with a project, etc.). 3. No bending or lifting of more than 10 pounds or back twisting of any nature (roll like a log when turning in bed). 4. You may ride in a car for 20-30 minutes at a time. No driving until after your first visit with your doctor. 5. Frequent changes of position and restricting sitting to 30 minutes at a time will help limit the amount of back spasms and stiffness you may experience. 6. You may discontinue the use of ambulatory aids (cane, crutches, etc.) once your strength and confidence allow. 7. You may nursing attendant the shower and let water strike your incision when you arrive home at least once daily. Do not take a tub bath, sit in a hot tub or go into a swimming pool until after your first recheck in the office. SPECIAL CARE INSTRUCTIONS: VERY IMPORTANT TO READ AND REVIEW A. Your surgical incision has been closed with a cosmetic suture under the skin that will dissolve in about 6 weeks. In 14 days, you can use a pair of clean scissors and cut the suture that is left outside of the skin at the ends of your incision. 1. The small skin tapes can be removed 7 days after surgery if they have not fallen off by that point. 2. You may keep the wound open to air as much as possible to promote healing after post-op day number 5 unless told otherwise by your doctor. 3. If you think the wound looks like it is becoming infected (redness or worsening drainage) and/or you are experiencing fever, chill or worsening back pain and muscle spasms, contact the office so that we may evaluate you as soon as possible. B. Complications are uncommon, but please contact us if you have any signs or symptoms of: 1. wound infection (fever higher than 102.5 degrees F, redness, separation of wound, drainage, or increasing pain from the incision) 2. blood clots in legs (pain, swelling, redness and warmth in legs) 3. urinary tract infection (fever higher than 102.5 degrees F, burning upon urination or increased frequency of urination) 4. nerve problems (inability to walk on your toes or heels, numbness, loss of bowel or bladder control) 5. any other symptoms that concern you C. Please call the office at if you have any concerns or questions about your operation or recovery. D. No smoking! Smoking drastically decreases the chance of a solid fusion. E. Do not take any anti-inflammatory medications (Indocin, Advil, Motrin, Aspirin, Naprosyn, etc.) as these may inhibit the chance of a solid fusion. Tylenol is okay to take for pain. MANAGING PAIN AFTER SPINAL SURGERY 1. Narcotic medication is intended for short-term use and will be provided for surgical pain. Surgical pain usually lasts for a period of 4-6 weeks. Narcotic medication includes Percocet, Vicodin, Darvocet, Tylenol #3 or Lortab. 2. Longer-term pain is more appropriately treated with non-narcotic medication such as Tylenol ES. 3. Muscle spasm is not appropriately treated with narcotics. Muscle relaxers such as Soma, Flexeril or Skelaxin can be used along with Tylenol ES. 4. Remember that we all live with some "aches and pains". This is not unusual or uncommon after an injury or as we get older. a. Back pain is expected and may include muscle spasms for 4 to 6 weeks after surgery. The pain should gradually improve. If the pain worsens for no apparent reason, please contact the office. b. Intermittent leg pain may also be experienced and should not be concerned about unless it worsens for no apparent reason. If so, please contact the office. 5. We will provide appropriate medication within the normal guidelines of their prescribed use. We will also be very cautious and aware of potential abuse and extended duration of patients' medication needs. a. Pain medications are for your comfort and to assist with sleep and rest so that the tissue can heal. They are not provided in order to return to normal activity and should not be used through the day. To do so or worsening pain at night can result from ongoing tissue damage and development of tolerance to the prescribed medicine. 6. Please allow 2-3 days to process refills. Prescriptions will not be mailed but must be picked up at the office. FOLLOW UP VISIT: Keep your scheduled follow-up appointment. Any questions, please call the office at . Pending Studies at Discharge: No Stand-Alone Forms: [facility], Smoking Cessation Medications and DC Order Prescriptions: New tramadol 50 mg tablet 50 mg PO Q6H PRN (Reason: pain, moderate) Qty: 30 0RF oxycodone 5 mg tablet 5 mg PO Q6H PRN (Reason: pain, severe) Qty: 30 0RF Continued multivitamin Tablet 1 tab PO DAILY Discontinued methylprednisolone 4 mg tablets,dose pack 4 mg PO .COMPLEX Qty: 21 0RF Rx Instructions: 4 mg PO Use as directed; ibuprofen [Advil] 200 mg Tablet 600 mg PO Q6H PRN (Reason: Pain) Discharge Orders: Discharge Order (Routine); Ordered 09/28/22 Ordered By: Garth Paul Admission Data Admit Date/Time: 09/23/22 08:29 Attending Provider: Cathie Salazar Admit Provider: Ganesh Mcgarry Primary Care Provider: Yolanda Schaefer Other Providers: Ganesh Mcgarry ; Garth Paul
== END 2022-09-28 13:40 | disposition home or self-care (01) | DRG 455 ==
LOC: ED 12:21 → 3W 12:21 → SUATTDRO 17:20 → 3W 19:04 → SUATTDRO 09-23 08:29